=== PATIENT | male | born 1965 | race Caucasian/White ===

== ENCOUNTER 2018-02-22 21:32 | Emergency (ER) | payer MEDICAID ==
--- NOTE | 2018-02-22 22:39 | EDM.PDOC ---
ED HPI GENERAL MEDICAL PROBLEM - General Chief Complaint: Back Pain or Injury Stated Complaint: LEG AND FOOT PAIN Time Seen by Provider: 02/22/18 22:10 Source of Information: Reports: Patient History Limitations: Reports: No Limitations - History of Present Illness INITIAL COMMENTS - FREE TEXT/NARRATIVE: Ruy is recently located to the [facility] from [place], [place]. He has a PMH of psoriasis and has been taking Prednisone up to 100 mg per day po over the past 2 years. He currenly is experiencing R CVA pain that is migrating into his R lower back, hip, thigh and lower leg. Pain is aching, worse with movement, and not associated with voiding or digestive sxs. There is no injury hx. His last medical examination was about 2 years ago before GB surgery. R hip to knee Pain Score (Numeric/FACES): 5 - Related Data Allergies Allergy/AdvReac Type Severity Reaction Status Date / Time No Known Allergies Allergy Verified 02/22/18 22:05 Home Meds: Home Meds predniSONE [Prednisone] 100 mg PO DAILY 02/22/18 [History] ED ROS GENERAL - Review of Systems Review Of Systems: See Below Constitutional: Reports: No Symptoms HEENT: Reports: No Symptoms Respiratory: Reports: No Symptoms Cardiovascular: Reports: No Symptoms Endocrine: Reports: No Symptoms GI/Abdominal: Reports: No Symptoms : Reports: No Symptoms Musculoskeletal: Reports: Back Pain Skin: Reports: Rash (psoriasis) Neurological: Reports: No Symptoms Psychiatric: Reports: No Symptoms Hematologic/Lymphatic: Reports: No Symptoms Immunologic: Reports: No Symptoms ED EXAM, GENERAL - Physical Exam Exam: See Below Exam Limited By: No Limitations General Appearance: Alert, WD/WN, No Apparent Distress, Anxious Head: Normocephalic, Other (facial erythema) Neck: Normal Inspection, Supple, Non-Tender Respiratory/Chest: Lungs Clear, Normal Breath Sounds, Chest Non-Tender Cardiovascular: Regular Rate, Rhythm, No Murmur GI/Abdominal: Normal Bowel Sounds, Soft, Non-Tender, No Organomegaly, No Distention, No Abnormal Bruit, No Mass, Pelvis Stable (Male) Exam: No Hernia, Normal Inspection Rectal (Males) Exam: Normal Exam, Prostate Normal Back Exam: CVA Tenderness (R), Paraspinal Tenderness Extremities: Normal Range of Motion, No Pedal Edema Neurological: Alert, Oriented, CN II-XII Intact, Normal Gait, No Motor/Sensory Deficits Psychiatric: Normal Affect, Anxious Skin Exam: Warm, Dry, Erythema, Rash Lymphatic: No Adenopathy Course - Vital Signs Text/Narrative:: Screening labwork including CBC, CMP, and UA were baseline. 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 I suggested rest and NSAIDs, and est with PCP regarding psoriasis. Last Recorded V/S: Last Vital Signs Temp 36.7 C 02/22/18 21:58 Pulse 82 02/22/18 21:58 Resp 18 02/22/18 21:58 BP 170/95 H 02/22/18 21:58 Pulse Ox 98 02/22/18 21:58 - Orders/Labs/Meds Orders: Active Orders 24 hr Category Date Time Status UA W/MICROSCOPIC [URIN] Stat Lab 02/22/18 22:40 Ordered Labs: Laboratory Tests 02/22/18 02/22/18 02/22/18 Range/Units 22:40 22:45 22:45 WBC 12.4 H (4.5-12.0) X10-3/uL RBC 5.14 (4.30-5.75) x10(6)uL Hgb 15.1 (11.5-15.5) g/dL Hct 44.5 (30.0-51.3) % MCV 86.6 (80-96) fL MCH 29.3 (27.7-33.6) pg MCHC 33.9 (32.2-35.4) g/dL RDW 14.6 (11.5-15.5) % Plt Count 195 (125-369) X10(3)uL MPV 7.4 (7.4-10.4) fL Neut % (Auto) 93.6 H (46-82) % Lymph % (Auto) 5.1 L (13-37) % [place] % (Auto) 0.6 L (4-12) % Eos % (Auto) 0 L (1.0-5.0) % Baso % (Auto) 0 (0-2) % Neut # (Auto) 11.7 H (1.6-8.3) # Lymph # (Auto) 0.6 (0.6-5.0) # [place] # (Auto) 0.1 (0.0-1.3) # Eos # (Auto) 0.0 (0.0-0.8) # Baso # (Auto) 0.0 (0.0-0.2) # Sodium 143 (135-145) mmol/L Potassium 3.8 (3.5-5.3) mmol/L Chloride 106 (100-110) mmol/L Carbon Dioxide 30 (21-32) mmol/L BUN 21 H (7-18) mg/dL Creatinine 1.1 (0.70-1.30) mg/dL Est Cr Clr Drug Dosing 84.62 mL/min Estimated GFR (MDRD) > 60 (>60) BUN/Creatinine Ratio 19.1 (9-20) Glucose 130 H (80-116) mg/dL Calcium 8.0 L (8.6-10.2) mg/dL Total Bilirubin 0.4 (0.1-1.3) mg/dL AST 23 (5-25) IU/L ALT 43 H (12-36) U/L Alkaline Phosphatase 100 (56-112) IU/L Total Protein 6.3 (6.0-8.0) g/dL Albumin 3.3 L (3.5-5.2) g/dL Globulin 3.0 g/dL Albumin/Globulin Ratio 1.1 Urine Color Yellow (YELLOW) Urine Appearance Clear (CLEAR) Urine pH 6.0 (5.0-6.5) Ur Specific [place] 1.010 (1.010-1.025) Urine Protein Negative (NEGATIVE) mg/dL Urine Glucose (UA) Normal (NEGATIVE) mg/dL Urine Ketones Negative (NEGATIVE) mg/dL Urine Occult Blood Negative (NEGATIVE) Urine Nitrite Negative (NEGATIVE) Urine Bilirubin Negative (NEGATIVE) Urine Urobilinogen 1 H (NEGATIVE) mg/dL Ur Leukocyte Esterase Negative (NEGATIVE) Urine RBC 0-5 (0) Urine WBC 0-5 (0) Ur Squamous Epith Cells Occasional (NS,R,O) Urine Bacteria Rare H (NS) Departure - Departure Time of Disposition: 23:43 Disposition: Home, Self-Care 01 Condition: Fair Clinical Impression: Back pain Qualifiers: Back pain location: back pain in other location Chronicity: unspecified Qualified Code(s): M54.89 - Other dorsalgia - Discharge Information *PRESCRIPTION DRUG MONITORING PROGRAM REVIEWED*: Not Applicable *COPY OF PRESCRIPTION DRUG MONITORING REPORT IN PATIENT SANDY: Not Applicable Referrals: PCP,None [Primary Care Provider] - Forms: ED Department Discharge - Problem List & Annotations (1) Back pain SNOMED Code(s): 636617631 Code(s): M54.9 - DORSALGIA, UNSPECIFIED Status: Acute Current Visit: Yes Annotation/Comment:: NSAIDs, rest, and follow up with PCP. Qualifiers: Back pain location: back pain in other location Chronicity: unspecified Qualified Code(s): M54.89 - Other dorsalgia - Problem List Review Problem List Initiated/Reviewed/Updated: Yes - My Orders Last 24 Hours: My Active Orders 02/22/18 22:40 UA W/MICROSCOPIC [URIN] Stat - Assessment/Plan Last 24 Hours: My Active Orders 02/22/18 22:40 UA W/MICROSCOPIC [URIN] Stat Plan: Follow up with PCP.
== END 2018-02-22 23:47 | disposition home or self-care (01) ==
LOC: FB.ED 21:32
DX: M54.89 Other dorsalgia (principal); L40.9 Psoriasis, unspecified
CPT/HCPCS: 36415; 80053; 81001; 85025; 99283

== ENCOUNTER 2018-03-31 15:26 | Emergency (ER) | payer MEDICAID ==
--- NOTE | 2018-03-31 17:46 | EDM.PDOC ---
ED HPI GENERAL MEDICAL PROBLEM - General Chief Complaint: General Stated Complaint: EDEMA BOTH ANKLES Time Seen by Provider: 03/31/18 15:35 Source of Information: Reports: Patient, Family History Limitations: Reports: Physical Impairment - History of Present Illness INITIAL COMMENTS - FREE TEXT/NARRATIVE: 52 y.o.w.m with h/o of chronic low back pain, Psoriasis, disabled, ambulates with the wheel chair and crutches, came to the ed because of acute swelling of his lower extremities. pt noticed the swelling this am. No SOB, No C/P No H/O CHF or diabetes. Pt is on Oxycodon and Prednison for his Psoriasis and pain. He is using Marijuana and Cocain as well, occ. No trauma. Pt is not able to sleep in a bed in supine position. No N/V/D or any other acute medical issues. 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: Other (see below) (Prednison and oxycodon) bilateral leg Pain Score (Numeric/FACES): 7 - Related Data Allergies Allergy/AdvReac Type Severity Reaction Status Date / Time No Known Allergies Allergy Verified 03/31/18 15:45 Home Meds: Home Meds predniSONE [Prednisone] 50 mg PO DAILY 02/22/18 [History] Hydrocodone/Acetaminophen [Hydrocodon-Acetaminophn 10-325] 1 tab PO Q4HR [History] Past Medical History Cardiovascular History: Reports: Other (See Below) Other Cardiovascular History: states that blood pressure is always high but PCP did not prescribe him with anti hypertensive med as PCP said that blood pressure is just related to his chonic pain. Musculoskeletal History: Reports: Arthritis, Other (See Below) Other Musculoskeletal History: psoriatric arthritis Neurological History: Reports: Concussion Psychiatric History: Reports: Other (See Below) Other Psychiatric History: cocaine use in the past. Dermatologic History: Reports: Psoriasis - Infectious Disease History Infectious Disease History: Reports: Chicken Pox - Past Surgical History HEENT Surgical History: Reports: Oral Surgery Cardiovascular Surgical History: Reports: None GI Surgical History: Reports: Cholecystectomy Musculoskeletal Surgical History: Reports: None Social & Family History - Family History Family Medical History: Noncontributory - Tobacco Use Smoking Status *Q: Current Every Day Smoker Years of Tobacco use: 31 Packs/Tins Daily: 1 - Caffeine Use Caffeine Use: Reports: Coffee, Soda - Recreational Drug Use Recreational Drug Use: Yes Recreational Drug Type: Reports: Cocaine ED ROS GENERAL - Review of Systems Review Of Systems: See Below Constitutional: Reports: Weakness HEENT: Reports: No Symptoms Respiratory: Reports: No Symptoms Cardiovascular: Reports: No Symptoms Endocrine: Reports: No Symptoms GI/Abdominal: Reports: No Symptoms : Reports: No Symptoms Musculoskeletal: Reports: Muscle Pain Skin: Reports: Other (Psoriasis) Neurological: Reports: No Symptoms Psychiatric: Reports: No Symptoms Hematologic/Lymphatic: Reports: No Symptoms Immunologic: Reports: No Symptoms ED EXAM, GENERAL - Physical Exam Exam: See Below Exam Limited By: Physical Impairment General Appearance: Alert, WD/WN, Mild Distress Eye Exam: Bilateral Eye: Normal Inspection Ears: Normal External Exam Ear Exam: Bilateral Ear: Auricle Normal Nose: Normal Inspection, Normal Mucosa Throat/Mouth: Normal Inspection, Normal Lips, Normal Gums, Normal Oropharynx, Normal Voice, No Airway Compromise Head: Atraumatic, Normocephalic Neck: Normal Inspection, Supple, Non-Tender, Full Range of Motion Respiratory/Chest: No Respiratory Distress, Lungs Clear, Normal Breath Sounds, No Accessory Muscle Use, Chest Non-Tender Cardiovascular: Normal Peripheral Pulses, Regular Rate, Rhythm, No Edema, No Gallop, No JVD, No Murmur, No Rub GI/Abdominal: Normal Bowel Sounds, Soft, Non-Tender, No Organomegaly, No Distention, No Abnormal Bruit, No Mass, Pelvis Stable (Male) Exam: Deferred Rectal (Males) Exam: Deferred Back Exam: Normal Inspection, Full Range of Motion Extremities: Normal Range of Motion, Non-Tender, Normal Capillary Refill, Pedal Edema (minor 1-2+) Neurological: Alert, Oriented, CN II-XII Intact, Normal Cognition, Abnormal Gait (due to back pain chronic) Psychiatric: Normal Affect Skin Exam: Warm, Dry, Intact, Normal Color, No Rash Lymphatic: No Adenopathy Course - Vital Signs Text/Narrative:: 52 y.o.w.m with h/o of chronic low back pain, Psoriasis, disabled, ambulates with the wheel chair and crutches, came to the ed because of acute swelling of his lower extremities. pt noticed the swelling this am. No SOB, No C/P No H/O CHF or diabetes. Pt is on Oxycodon and Prednison for his Psoriasis and pain. He is using Marijuana and Cocain as well, occ. No trauma. Pt is not able to sleep in a bed in supine position. No N/V/D or any other acute medical issues. BP 175/ 89 Pulse 74 RR 18 Pulse ox 98% on RA Temp 36.8 PE: WNWD w m with lower leg swelling Imaging: US neg foir DVT ( done 04/01/2018) Labs: UDS for opioids and Cocaine HGB A1c 5.7 BNP Nl Glc 121 GFR > 60 Lactic acid nl WBC 14K reminder of WBC was neg Impression: 1) David lower leg edema: DDx DVT vs Cardiac vs lymphedema. 2) Drug screen pos for cocaine and Opioids 3) H/O low back pain, H/o Psoriasis 4) HTN, pt takes cocain Tx: Clonidin 0.1 mg po Reexam: Improved Plan: D/C with instructions Last Recorded V/S: Last Vital Signs Temp 36.9 C 03/31/18 15:35 Pulse 94 03/31/18 15:35 Resp 18 03/31/18 15:35 BP 173/96 H 03/31/18 18:01 Pulse Ox 99 03/31/18 15:35 - Orders/Labs/Meds Orders: Active Orders 24 hr Category Date Time Status DRUG SCREEN, URINE ALERE [URCHEM] Stat Lab 03/31/18 16:50 Ordered Labs: Laboratory Tests 03/31/18 03/31/18 03/31/18 Range/Units 16:35 16:35 16:35 WBC 14.0 H (4.5-12.0) X10-3/uL RBC 4.48 (4.30-5.75) x10(6)uL Hgb 14.0 (11.5-15.5) g/dL Hct 40.0 (30.0-51.3) % MCV 89.3 (80-96) fL MCH 31.2 (27.7-33.6) pg MCHC 34.9 (32.2-35.4) g/dL RDW 15.5 (11.5-15.5) % Plt Count 200 (125-369) X10(3)uL MPV 7.2 L (7.4-10.4) fL Add Manual Diff Yes Neutrophils % (Manual) 85 H (46-82) % Band Neutrophils % 2 (0-6) % Lymphocytes % (Manual) 10 L (13-37) % Monocytes % (Manual) 3 L (4-12) % Sodium 136 (135-145) mmol/L Potassium 3.9 (3.5-5.3) mmol/L Chloride 103 (100-110) mmol/L Carbon Dioxide 33 H (21-32) mmol/L BUN 25 H (7-18) mg/dL Creatinine 0.9 (0.70-1.30) mg/dL Est Cr Clr Drug Dosing 103.42 mL/min Estimated GFR (MDRD) > 60 (>60) BUN/Creatinine Ratio 27.8 H (9-20) Glucose 141 H (80-116) mg/dL Hemoglobin A1c (4.5-6.2) % Lactic Acid (0.4-2.2) mmol/L Calcium 9.0 (8.6-10.2) mg/dL Total Bilirubin (0.1-1.3) mg/dL Direct Bilirubin (0.10-0.20) mg/dL AST (5-25) IU/L ALT (12-36) U/L Alkaline Phosphatase (56-112) IU/L NT-Pro-B Natriuret Pep 118 (<=125) pg/mL Total Protein (6.0-8.0) g/dL Albumin (3.5-5.2) g/dL Urine Opiates Screen (NEGATIVE) Ur Oxycodone Screen (NEGATIVE) Ur Propoxyphene Screen (NEGATIVE) Ur Barbituates Screen (NEGATIVE) Ur Tricyclics Screen (NEGATIVE) Ur Phencyclidine Scrn (NEGATIVE) Ur Amphetamine Screen (NEGATIVE) Urine MDMA Screen (NEGATIVE) U Benzodiazepines Scrn (NEGATIVE) U Cocaine Metab Screen (NEGATIVE) U Marijuana (THC) Screen (NEGATIVE) 03/31/18 03/31/18 03/31/18 Range/Units 16:35 16:35 16:35 WBC (4.5-12.0) X10-3/uL RBC (4.30-5.75) x10(6)uL Hgb (11.5-15.5) g/dL Hct (30.0-51.3) % MCV (80-96) fL MCH (27.7-33.6) pg MCHC (32.2-35.4) g/dL RDW (11.5-15.5) % Plt Count (125-369) X10(3)uL MPV (7.4-10.4) fL Add Manual Diff Neutrophils % (Manual) (46-82) % Band Neutrophils % (0-6) % Lymphocytes % (Manual) (13-37) % Monocytes % (Manual) (4-12) % Sodium (135-145) mmol/L Potassium (3.5-5.3) mmol/L Chloride (100-110) mmol/L Carbon Dioxide (21-32) mmol/L BUN (7-18) mg/dL Creatinine (0.70-1.30) mg/dL Est Cr Clr Drug Dosing mL/min Estimated GFR (MDRD) (>60) BUN/Creatinine Ratio (9-20) Glucose (80-116) mg/dL Hemoglobin A1c 5.6 (4.5-6.2) % Lactic Acid 1.5 (0.4-2.2) mmol/L Calcium (8.6-10.2) mg/dL Total Bilirubin 0.4 (0.1-1.3) mg/dL Direct Bilirubin 0.09 L (0.10-0.20) mg/dL AST 13 D (5-25) IU/L ALT 53 H D (12-36) U/L Alkaline Phosphatase 144 H (56-112) IU/L NT-Pro-B Natriuret Pep (<=125) pg/mL Total Protein 6.2 (6.0-8.0) g/dL Albumin 3.1 L (3.5-5.2) g/dL Urine Opiates Screen (NEGATIVE) Ur Oxycodone Screen (NEGATIVE) Ur Propoxyphene Screen (NEGATIVE) Ur Barbituates Screen (NEGATIVE) Ur Tricyclics Screen (NEGATIVE) Ur Phencyclidine Scrn (NEGATIVE) Ur Amphetamine Screen (NEGATIVE) Urine MDMA Screen (NEGATIVE) U Benzodiazepines Scrn (NEGATIVE) U Cocaine Metab Screen (NEGATIVE) U Marijuana (THC) Screen (NEGATIVE) 03/31/18 Range/Units 16:50 WBC (4.5-12.0) X10-3/uL RBC (4.30-5.75) x10(6)uL Hgb (11.5-15.5) g/dL Hct (30.0-51.3) % MCV (80-96) fL MCH (27.7-33.6) pg MCHC (32.2-35.4) g/dL RDW (11.5-15.5) % Plt Count (125-369) X10(3)uL MPV (7.4-10.4) fL Add Manual Diff Neutrophils % (Manual) (46-82) % Band Neutrophils % (0-6) % Lymphocytes % (Manual) (13-37) % Monocytes % (Manual) (4-12) % Sodium (135-145) mmol/L Potassium (3.5-5.3) mmol/L Chloride (100-110) mmol/L Carbon Dioxide (21-32) mmol/L BUN (7-18) mg/dL Creatinine (0.70-1.30) mg/dL Est Cr Clr Drug Dosing mL/min Estimated GFR (MDRD) (>60) BUN/Creatinine Ratio (9-20) Glucose (80-116) mg/dL Hemoglobin A1c (4.5-6.2) % Lactic Acid (0.4-2.2) mmol/L Calcium (8.6-10.2) mg/dL Total Bilirubin (0.1-1.3) mg/dL Direct Bilirubin (0.10-0.20) mg/dL AST (5-25) IU/L ALT (12-36) U/L Alkaline Phosphatase (56-112) IU/L NT-Pro-B Natriuret Pep (<=125) pg/mL Total Protein (6.0-8.0) g/dL Albumin (3.5-5.2) g/dL Urine Opiates Screen Positive H (NEGATIVE) Ur Oxycodone Screen Negative (NEGATIVE) Ur Propoxyphene Screen Negative (NEGATIVE) Ur Barbituates Screen Negative (NEGATIVE) Ur Tricyclics Screen Negative (NEGATIVE) Ur Phencyclidine Scrn Negative (NEGATIVE) Ur Amphetamine Screen Negative (NEGATIVE) Urine MDMA Screen Negative (NEGATIVE) U Benzodiazepines Scrn Negative (NEGATIVE) U Cocaine Metab Screen Positive H (NEGATIVE) U Marijuana (THC) Screen Negative (NEGATIVE) Meds: Medications Discontinued Medications Generic Name Dose Route Start Last Admin Trade Name [place] PRN Reason Stop Dose Admin Clonidine HCl 0.1 mg 03/31/18 17:55 03/31/18 18:01 Catapres PO 03/31/18 17:56 0.1 mg ONETIME ONE Administration Departure - Departure Time of Disposition: 17:46 Disposition: Home, Self-Care 01 Condition: Good Clinical Impression: Swelling of lower leg - Discharge Information Instructions: Deep Vein Thrombosis Referrals: Maicol Pina MD [Primary Care Provider] - Forms: ED Department Discharge Additional Instructions: Please increase water intake, please elevate legs please come back for an US lower legs to R/O DVT. Please come back immediately if your symptoms get worse acutely - My Orders Last 24 Hours: My Active Orders 03/31/18 16:50 DRUG SCREEN, URINE ALERE [URCHEM] Stat - Assessment/Plan Last 24 Hours: My Active Orders 03/31/18 16:50 DRUG SCREEN, URINE ALERE [URCHEM] Stat
[2018-03-31] MEDS ORDERED: cloNIDine 0.1 MG Tab PO ONE (17:55)
== END 2018-03-31 18:05 | disposition home or self-care (01) ==
LOC: FB.ED 15:26
DX: R60.0 Localized edema (principal); I10 Essential (primary) hypertension; F17.210 Nicotine dependence, cigarettes, uncomplicated; Z79.899 Other long term (current) drug therapy
CPT/HCPCS: 36415; 80048; 80076; 80305; 83036; 83605; 83880; 85025; 99283; A9270

== ENCOUNTER 2018-04-15 13:37 | Inpatient (IN) | payer MEDICAID ==
[~2018-04-15 13:37] MED LIST: HYDROmorphone 2 MG/ML SDV IV ONE; Midazolam 1 MG/ML 2 ML SDV IV ONE; fentaNYL 100 MCG/2 ML SDV IV ONE
--- NOTE | 2018-04-15 15:50 | EDM.PDOC ---
ED HPI GENERAL MEDICAL PROBLEM - General Chief Complaint: Back Pain or Injury Stated Complaint: BACK PAIN Time Seen by Provider: 04/15/18 13:55 History Limitations: Reports: No Limitations - History of Present Illness INITIAL COMMENTS - FREE TEXT/NARRATIVE: Patient hasn't severe back pain and tenderness onset April 04. He was limited to [facility] on April 06 and had an MRI of the same day. He was discharged April 09. April 06 he has been taking prednisone 20 mg daily for 2 years. She has been seeing the chiropractor saw Her one time and he has resulted in severe back pain so went back to the chiropractor second day he could not walk. He walked around with "a broken back" for approximately a month until was seen by Dr. Pina April 04 and he had an MRI the following day April 05 and the following April 06 was hospitalized [facility]. He was discharged from [facility] April 09. April 11 after having been home for 2 days he is in such severe pain and back to [place] [facility] and transferred to the old [facility] and [place] then had surgery March 24 kyphoplasty is L2 and L4. And was dismissed home the same day to 30 p.m. he had no difficulty with further pain on March last time he took Dilaudid 2 mg was yesterday April 14. No Dilaudid was taken today. Did not have any medicines this morning. He did not have medicines that could cause nausea. He did not eat breakfast because he is so nauseated. and he has not received his today's dose. This probably nauseated not related to TMP-SMX. 30. She takes 40 mg of prednisone since he was dismissed from the hospital. However yesterday he only took 20 mg of prednisone. He will take the additional 20 mg. Today with nausea. (Possible etiologies for patient's nausea today.). He refused to take his total 40 mg prednisone yesterday and only took 20 mg. he was given 40 mg prednisone orally at 1550 today. He denies cauda equina symptoms. Per versus weakness numbness or extremities no loss of strength in his lower extremities. He has good bladder or bowel control had been dismissed on TMP SMX Wednesday. He did not take today's or TMP-SMX. 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 (see below) (OxyContin this morning.) - Related Data Allergies Allergy/AdvReac Type Severity Reaction Status Date / Time No Known Allergies Allergy Verified 04/15/18 14:05 Home Meds: Home Meds predniSONE [Prednisone] 50 mg PO DAILY 02/22/18 [History] Hydrocodone/Acetaminophen [Hydrocodon-Acetaminophn 10-325] 1 tab PO Q4HR [History] Past Medical History Cardiovascular History: Reports: Other (See Below) Other Cardiovascular History: states that blood pressure is always high but PCP did not prescribe him with anti hypertensive med as PCP said that blood pressure is just related to his chonic pain. Musculoskeletal History: Reports: Arthritis, Other (See Below) Other Musculoskeletal History: psoriatric arthritis Neurological History: Reports: Concussion Psychiatric History: Reports: Other (See Below) Other Psychiatric History: cocaine use in the past. Dermatologic History: Reports: Psoriasis - Infectious Disease History Infectious Disease History: Reports: Chicken Pox - Past Surgical History HEENT Surgical History: Reports: Oral Surgery Cardiovascular Surgical History: Reports: None GI Surgical History: Reports: Cholecystectomy Musculoskeletal Surgical History: Reports: None Social & Family History - Family History Family Medical History: Noncontributory - Caffeine Use Caffeine Use: Reports: Coffee, Soda ED ROS GENERAL - Review of Systems Review Of Systems: See Below Constitutional: Reports: No Symptoms HEENT: Reports: No Symptoms, Other (Chronic left lower lip ulcer because he's been taking prednisone for 2 years.) Respiratory: Reports: No Symptoms Cardiovascular: Reports: No Symptoms Endocrine: Reports: No Symptoms GI/Abdominal: Reports: No Symptoms : Reports: No Symptoms Musculoskeletal: Reports: Back Pain Skin: Reports: Other (Chronic lifetime psoriasis with pigmentation changes as well as extremity secondary to extensive prednisone use.) Neurological: Reports: Difficulty Walking Psychiatric: Reports: No Symptoms Hematologic/Lymphatic: Reports: No Symptoms Immunologic: Reports: No Symptoms ED EXAM,LOWER BACK PAIN/INJURY - Physical Exam Exam: See Below Text/Narrative:: Patient is in marked pain and does not want to change from a semi-forward sitting up position to supine position because of the extensive low back pain. Exam Limited By: No Limitations General Appearance: Alert, Severe Distress Eye Exam: Bilateral Eye: Abnormal Pupil (Pinpoint pupils.) Ears: Normal External Exam, Normal Canal, Hearing Grossly Normal, Normal TMs Nose: Normal Inspection, Normal Mucosa, No Blood Throat/Mouth: Normal Inspection, Normal Teeth, Normal Gums, Normal Oropharynx, Other (Left lower lip oral ulcerative chronic. Secondary to prednisone use for 2 years) Neck: Normal Inspection, Supple, Non-Tender, Full Range of Motion Respiratory/Chest: No Respiratory Distress, Lungs Clear GI/Abdominal: Normal Bowel Sounds, Tender, Other (Mild voluntary guarding) (Male) Exam: No Hernia, Normal Inspection Rectal (Males) Exam: Deferred Back Exam: Other (He has such severe back pain he does not want to rule out his back onto his side. He prefers to be 45 flexion. His pain so extensively refused to move. And groans loudly in anticipation and objection to my thinking about, discussing, any attempt to move) Neurological: Alert, Normal Mood/Affect, Normal Dorsiflexion, CN II-XII Intact, Normal Plantar Flexion DTR - Lower Extremities: 0: Knee (R), Knee (L), Ankle (R), Ankle (L) Psychiatric: Normal Affect, Normal Mood Skin Exam: Warm, Dry, Intact, Normal Color Course - Orders/Labs/Meds Orders: Active Orders 24 hr Category Date Time Status Lumbar Spine wo Cont [CT] Stat Exams 04/15/18 15:07 Ordered Meds: For his conscious sedation CAT scan studies patient received 200g fentanyl, 2 mg Versed, 2 mg Dilaudid IV without conplication and the CT of his lower back was completed without difficulty. Iraj Lauren was the nurse upscale security officer Departure - Departure Time of Disposition: 17:15 (He had nausea this AM (thought to be aproblembecause he did he did not take TMP SMX. He did not take any antibiotic this morning. He also has been given a nicotine patch in the hospital which she took off and did not use. Yesterday he did not take his full 40 mg of prednisone. Instead he said F that I want to get this over with. I'm only going to take 20 mg of prednisone." He refused to take his appropriate 40 mg prednisone. He did not take any prednisone this morning. It is possible that his nausea and vomiting secondary to not taking yesterday his complaint prednisone dose and no prednisone taken today.Adrenal crisis.. I discussed with the family with their wishes were regarding hospitalization and pain control for this weekend which includes the weekend. They answered and preferred he stay [facility] until the interventional radiology could be completed on April 22. I spoke to Dr. Pitts, interventional radiologist and interventional radiology would not be available to April 22. Meantime patient will be admitted to the hospital for pain control this . I do spoken to and he has accepted the patient for admission to [facility].. I will be writing admission orders.) Disposition: Admitted As Inpatient 67 Condition: Fair Clinical Impression: Lumbar compression fracture Qualifiers: Encounter type: subsequent encounter Lumbar vertebra fracture level: L4 Fracture type: closed Fracture healing: with routine healing Qualified Code(s): S32.040D - Wedge compression fracture of fourth lumbar vertebra, subsequent encounter for fracture with routine healing Thoracic compression fracture Qualifiers: Encounter type: initial encounter Fracture type: closed Qualified Code(s): S22.000A - Wedge compression fracture of unspecified thoracic vertebra, initial encounter for closed fracture - Discharge Information *PRESCRIPTION DRUG MONITORING PROGRAM REVIEWED*: Not Applicable *COPY OF PRESCRIPTION DRUG MONITORING REPORT IN PATIENT SANDY: Not Applicable Referrals: Maicol Pina MD [Primary Care Provider] - ED Communication - Discussed Case With (1) Discussed Case With (1): Admitting Provider Person/s Notified (1): Alen Tavarez - Discussed Case With (2) Discussed Case With (2): Radiologist (Dr Pitts, Interventional radiologist [facility]; the scheduling team called back and said they would be calling Wednesday MedSurg station at [facility] to see if arrangements could be made for interventional radiology on April 22) - My Orders Last 24 Hours: My Active Orders 04/15/18 15:07 Lumbar Spine wo Cont [CT] Stat - Assessment/Plan Last 24 Hours: My Active Orders 04/15/18 15:07 Lumbar Spine wo Cont [CT] Stat
[2018-04-15] MEDS ORDERED: HYDROmorphone 2 MG/ML SDV IVPUSH PRN (17:47)
[2018-04-15] MEDS ORDERED: Bisacodyl 5 MG Tab PO PRN (17:47)
[2018-04-15] MEDS ORDERED: Promethazine 25 MG Tab PO PRN (17:47)
[2018-04-15] MEDS: Sodium Chloride 0.9% 1,000 ML IV SCH (18:00)
[2018-04-15] MEDS ORDERED: Sulfamethoxazole/Trimethoprim 800-160 MG Tab PO SCH (18:15)
[2018-04-15] MEDS: Pantoprazole 40 MG Tab.CR PO SCH (19:26)
[2018-04-15] MEDS: oxyCODONE 5 MG Tab PO SCH ×2 (19:27→22:47)
[2018-04-15] MEDS: Acetaminophen 325 MG Tab PO SCH ×2 (19:28→22:49)
[2018-04-15] MEDS: Gabapentin 100 MG Cap PO SCH (20:43)
[2018-04-15] MEDS: Calcium Carbonate 500 MG Tab.Chew PO SCH (20:44)
[2018-04-16] MEDS: Sodium Chloride 0.9% 1,000 ML IV SCH (01:03)
[2018-04-16] MEDS: Acetaminophen 325 MG Tab PO SCH ×3 (02:30→10:11)
[2018-04-16] MEDS: oxyCODONE 5 MG Tab PO SCH ×3 (02:30→10:11)
[2018-04-16] MEDS: Pantoprazole 40 MG Tab.CR PO SCH (07:27)
[2018-04-16] MEDS: Calcium Carbonate 500 MG Tab.Chew PO SCH (08:56)
[2018-04-16] MEDS: Gabapentin 100 MG Cap PO SCH (08:57)
[2018-04-16] MEDS ORDERED: Celecoxib 200 MG Cap PO SCH (09:00)
[2018-04-16] MEDS ORDERED: Cholecalciferol (Vitamin D3) 1,000 Unit Tab PO SCH (09:00)
[2018-04-16] MEDS ORDERED: predniSONE 20 MG Tab PO SCH (09:00)
[2018-04-16] MEDS ORDERED: Fluconazole 100 MG Tab PO SCH (09:00)
--- NOTE | 2018-04-16 11:21 | HP ---
ADMISSION DATE: 04/15/2018 CHIEF COMPLAINT: Admission for back pain. HISTORY OF PRESENT ILLNESS: Ruy is a 52-year-old man from [place], [place], with a history of chronic severe psoriasis. He has been on high- dose prednisone, purchased in [place] for the past few years, sometimes up to 100- 200 mg per day. Ruy states that for the past few months, he has been having low back pain including numbness in the right foot. For this reason, he went to the chiropractor, and he said after his chiropractor visit in March, he developed acute severe pain in the back. He was sent to [facility] in [place] and was found to have 2 compression fractures in the lumbar spine. He was treated with kyphoplasty on 04/11/2018 and said the next day, he felt very well. Yesterday, he was moving, and he felt severe, recurrent pain in his low back. He did not injure himself, lift, etc. He came into the emergency room because of severe, unrelenting pain and was admitted now overnight for back pain. PAST MEDICAL HISTORY: Includes the long-standing psoriasis and the excessively high steroid dose. He has also been on high doses of narcotic and has a history of alcohol and cocaine intake. Past medical history also positive for cholecystectomy but negative for other surgeries or injuries, and he denies other health problems. MEDICATIONS: Upon discharge from [facility] include: 1. Dilaudid 2 mg every 4 hours p.r.n. pain. 2. Senokot-S 2 tabs b.i.d. 3. Tylenol p.r.n. 4. Calcium 500 mg t.i.d. 5. Diflucan 200 mg per day for 12 days. 6. Gabapentin 100 mg t.i.d. 7. Zestoretic 1 tab daily. 8. Omeprazole 20 mg daily. 9. Prednisone 40 mg daily with a planned upcoming taper. 10.Bactrim DS 1 tab Wednesday, Wednesday, Wednesday. 11.Vitamin D3, 2000 units per day. 12.He was asked to discontinue his Celebrex and his oxycodone. ALLERGIES: None. HABITS: He smokes a pack per day. He quit alcohol when he started having severe back pains in the last couple of months, and he denies any current drug use, but has at least a 6-pack of Mountain Dew per day. FAMILY AND SOCIAL HISTORY: The patient states he has not been able to work since his back pain. 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 He is accompanied by and daughter today. REVIEW OF SYSTEMS: Negative for headaches, high fever, or chills. He states he did have nausea and threw up yesterday, he suspects because he only took 20 mg of prednisone. No current nausea. No chest pain, palpitations, dyspnea, abdominal pain, diarrhea, constipation, hematochezia, melena, hematuria, joint inflammation or swelling. He has chronic psoriasis skin rash that appears quite suppressed. PHYSICAL EXAMINATION: GENERAL: He is alert and currently comfortable while lying in bed. VITAL SIGNS: Blood pressure 119/77, pulse 80 and regular, respirations 18, temperature 98.2. SKIN: Shows old changes of psoriasis over lower extremities. There is a healed puncture wound over his mid lumbar spine with no sign of inflammation or infection. He has extensive upper body tattoos. HEENT: Shows mouth to be dry. LUNGS: Clear. HEART: Regular. No murmur or gallop. ABDOMEN: Normal bowel sounds. Soft. He does relate slight tenderness in the right lower quadrant to palpation but no guarding, rebound, masses, or organomegaly. EXTREMITIES: Warm and well perfused. Good pulses in the feet. No edema. NEUROLOGIC: He is able to lift both legs up off the bed individually. He is able to roll onto his right side. Ankle jerk reflexes are 3+ at the left ankle jerk and absent at the right ankle jerk but strength, dorsi and plantar flexion of both feet are intact. ASSESSMENT: 1. Severe back pain post 3rd compression fracture after 2 kyphoplasties. 2. 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 3. Heavy medication intake. 4. Heavy narcotic use. PLAN: We will convert him from the IV hydromorphone to just oral oxycodone. Continue his pantoprazole and prednisone 40 mg daily and other medications as previously prescribed. There is apparently an appointment in place for him to have a 3rd kyphoplasty at [facility] in [place] on April 19. Likely, we will be able to get him up and moving around on oral medications so he can go home prior to that. /[id number] JONAH
--- NOTE | 2018-04-16 13:02 | DISCH ---
DISCHARGE DATE: 04/16/2018 PRIMARY FINAL DIAGNOSIS: Severe intractable low back pain secondary to compression fracture. 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 OPERATIONS: None. COMPLICATIONS: The patient was treated with IV hydromorphone and his pain got under control. By the next morning, he was able to get out of bed, get to the bathroom, wash up, and was anxious to go home. SUMMARY: Mr. Pardo is a 52-year-old man with severe steroid related osteoporosis due to taking high doses of oral steroid for psoriasis and psoriatic arthritis. He had kyphoplasty of two lumbar compression fractures, with good immediate improvement, but then yesterday on the day of admission, he developed sudden onset of lumbar back pain that was intractable. He came to the ER and was admitted overnight. CT exam revealed a possible additional L4 compression in addition with the visible kyphoplasty cement at L3 and L5. He was switched from IV hydromorphone to oral oxycodone and tolerated this satisfactorily, so he is ready for discharge. He was sent home in stable condition. There were arrangements pending for him to have evaluation for additional kyphoplasty at [facility] for April 19. MEDICATIONS ON DISCHARGE: 1. Dilaudid 2 mg every 4 hours p.r.n. pain. He was given a prescription for this up in [place] prior to his discharge. 2. Bactrim 1 tab Wednesday, Wednesday, and Wednesday. 3. Dulcolax tablets 5 mg daily p.r.n. 4. Tylenol p.r.n. 5. Prednisone 40 mg daily with a planned taper as previously discussed with him in [place]. 6. Omeprazole 20 mg daily. 7. Gabapentin 100 mg t.i.d. 8. Diflucan 200 mg daily. 9. Vitamin D 2000 units daily. 10.Calcium 500 mg t.i.d. FOLLOWUP: He is to have follow up as scheduled for the lumbar spine evaluation at [facility]. He will have routine followup with Dr. Pina in [place] on a p.r.n. basis in [place]. /[id number] RO/ALISHAL
== END 2018-04-16 12:30 | disposition home or self-care (01) | DRG 544 ==
LOC: FB.ED 13:37 → FB.MS 17:43
PROVIDERS: ADMIT Family Medicine; ATTEND Family Medicine
DX: M80.88XA Other osteoporosis with current pathological fracture, vertebra(e), initial encounter for fracture (principal); T38.0X5A Adverse effect of glucocorticoids and synthetic analogues, initial encounter; M51.17 Intervertebral disc disorders with radiculopathy, lumbosacral region; L40.9 Psoriasis, unspecified; L40.50 Arthropathic psoriasis, unspecified; Z98.890 Other specified postprocedural states; G89.29 Other chronic pain; Z79.52 Long term (current) use of systemic steroids; F17.210 Nicotine dependence, cigarettes, uncomplicated; K13.0 Diseases of lips; F14.11 Cocaine abuse, in remission; Z72.89 Other problems related to lifestyle; M54.9 Dorsalgia, unspecified
CPT/HCPCS: 72131; 96361; 96374; 96375; 99284; A9270-GY; J1170; J2250; J3010; J7030

== ENCOUNTER 2018-04-27 14:14 | Emergency (ER) | payer MEDICAID ==
--- NOTE | 2018-04-27 15:15 | EDM.PDOC ---
ED HPI GENERAL MEDICAL PROBLEM - General Chief Complaint: Back Pain or Injury Stated Complaint: BACK INJURY Time Seen by Provider: 04/27/18 14:45 Source of Information: Reports: Patient, Family, Old Records History Limitations: Reports: No Limitations - History of Present Illness INITIAL COMMENTS - FREE TEXT/NARRATIVE: Drew returns to [facility] ED with sxs of breakthrough pain from his back, worse over the past 12 hrs. He has a PMH of osteoporosis, compression fx at T12, L2 and L4, status post kyphoplasty at [facility]. He is awaiting further tests including a DEXA scan tomorrow and eventual MRI through [facility] for ongoing managment. He currently has been taking Dilaudid 2 mg q 4hrs, and this has not held him today. There are no new neurologic sxs affecting LEs, bowel or bladder function. Middle Back Pain Score (Numeric/FACES): 10 - Related Data Allergies Allergy/AdvReac Type Severity Reaction Status Date / Time No Known Allergies Allergy Verified 04/27/18 14:20 Home Meds: Home Meds Calcium Carbonate 500 mg PO TID 04/15/18 [History] Cholecalciferol (Vitamin D3) [Vitamin D3] 1 tab PO DAILY 04/15/18 [History] Fluconazole [Diflucan] 200 mg PO DAILY 04/15/18 [History] Gabapentin [Neurontin] 100 mg PO TID 04/15/18 [History] Omeprazole 20 mg PO DAILY 04/15/18 [History] predniSONE 40 mg PO DAILY 04/15/18 [History] Acetaminophen [Tylenol] 650 mg PO Q4H tablet 04/16/18 [Rx] Bisacodyl [Dulcolax] 5 mg PO DAILY PRN tablet 04/16/18 [Rx] HYDROmorphone [Dilaudid] 2 mg PO Q4H PRN #1 tab 04/16/18 [Rx] Sulfamethoxazole/Trimethoprim [Septra DS] 1 tab PO MoWeFr@0900 tablet 04/16/18 [Rx] Past Medical History Cardiovascular History: Reports: Other (See Below) Other Cardiovascular History: states that blood pressure is always high but PCP did not prescribe him with anti hypertensive med as PCP said that blood pressure is just related to his chonic pain. Musculoskeletal History: Reports: Arthritis, Other (See Below) Other Musculoskeletal History: psoriatric arthritis Neurological History: Reports: Concussion, Other (See Below) Psychiatric History: Reports: Other (See Below) Other Psychiatric History: cocaine use in the past. Dermatologic History: Reports: Psoriasis - Infectious Disease History Infectious Disease History: Reports: Chicken Pox - Past Surgical History HEENT Surgical History: Reports: Oral Surgery Cardiovascular Surgical History: Reports: None GI Surgical History: Reports: Cholecystectomy Neurological Surgical History: Reports: Vertebroplasty Other Neurological Surgeries/Procedures: Percutaneous Vertebroplasty 04/08/18 Musculoskeletal Surgical History: Reports: Other (See Below) Other Musculoskeletal Surgeries/Procedures:: CEMENT INJECTED INTO L2 AND L4 Social & Family History - Family History Family Medical History: Noncontributory - Tobacco Use Smoking Status *Q: Current Every Day Smoker Years of Tobacco use: 30 Packs/Tins Daily: 1 - Caffeine Use Caffeine Use: Reports: Soda, Tea Other Caffeine Use: 4-5 bottles - Recreational Drug Use Drug Use in Last 12 Months: Yes Recreational Drug Type: Reports: Cocaine ED ROS GENERAL - Review of Systems Review Of Systems: ROS reveals no pertinent complaints other than HPI. ED EXAM,LOWER BACK PAIN/INJURY - Physical Exam Exam: See Below Exam Limited By: No Limitations General Appearance: Alert, WD/WN, Moderate Distress Head: Normocephalic Neck: Normal Inspection, Supple, Non-Tender Respiratory/Chest: Lungs Clear Cardiovascular: Regular Rate, Rhythm, No Murmur GI/Abdominal: Normal Bowel Sounds, Soft, Non-Tender, No Organomegaly, No Distention (Male) Exam: Deferred Rectal (Males) Exam: Deferred Back Exam: Decreased Range of Motion, Vertebral Tenderness Extremities: Normal Inspection, Non-Tender, No Pedal Edema Neurological: Alert, Normal Mood/Affect, Normal Dorsiflexion, CN II-XII Intact, Difficulty Walking Psychiatric: Normal Affect, Anxious Skin Exam: Warm, Dry, Intact, Normal Color Lymphatic: No Adenopathy Course - Vital Signs Text/Narrative:: No meds were administered during ED visit. Last Recorded V/S: Last Vital Signs Temp 36.9 C 04/27/18 14:23 Pulse 100 04/27/18 14:23 Resp 18 04/27/18 14:23 BP 108/63 04/27/18 14:23 Pulse Ox 99 04/27/18 14:23 Departure - Departure Time of Disposition: 15:05 Disposition: Home, Self-Care 01 Condition: Fair Clinical Impression: Back pain Qualifiers: Back pain location: back pain in other location Chronicity: unspecified Qualified Code(s): M54.89 - Other dorsalgia Lumbar compression fracture Qualifiers: Encounter type: subsequent encounter Lumbar vertebra fracture level: L4 Fracture type: closed Fracture healing: with routine healing Qualified Code(s): S32.040D - Wedge compression fracture of fourth lumbar vertebra, subsequent encounter for fracture with routine healing Thoracic compression fracture Qualifiers: Encounter type: initial encounter Fracture type: closed Qualified Code(s): S22.000A - Wedge compression fracture of unspecified thoracic vertebra, initial encounter for closed fracture - Discharge Information *PRESCRIPTION DRUG MONITORING PROGRAM REVIEWED*: Not Applicable *COPY OF PRESCRIPTION DRUG MONITORING REPORT IN PATIENT SANDY: Not Applicable Referrals: Maicol Pina MD [Primary Care Provider] - - Problem List & Annotations (1) Back pain SNOMED Code(s): 248274632 Code(s): M54.9 - DORSALGIA, UNSPECIFIED Status: Acute Current Visit: Yes Annotation/Comment:: NSAIDs, rest, and follow up with PCP. I suggested increasing Dilaudid to 4 mg q 4 hrs until clinically stable, then reduce dosage to Dilaudid 3 mg q 4hrs as directed. Keep appt for DEXA scan tomorrow. Qualifiers: Back pain location: back pain in other location Chronicity: unspecified Qualified Code(s): M54.89 - Other dorsalgia - Problem List Review Problem List Initiated/Reviewed/Updated: Yes - Assessment/Plan Plan: Follow up at [facility] for further managment.
== END 2018-04-27 15:15 | disposition home or self-care (01) ==
LOC: FB.ED 14:14
DX: S22.000A Wedge compression fracture of unspecified thoracic vertebra, initial encounter for closed fracture (principal); S32.040D Wedge compression fracture of fourth lumbar vertebra, subsequent encounter for fracture with routine healing; Z79.899 Other long term (current) drug therapy; F17.210 Nicotine dependence, cigarettes, uncomplicated; X58.XXXA Exposure to other specified factors, initial encounter
CPT/HCPCS: 99283

== ENCOUNTER 2018-04-29 14:31 | Inpatient (IN) | payer MEDICAID ==
[2018-04-29] MEDS ORDERED: Sodium Chloride 0.9% 10 ML Syringe FLUSH PRN (14:45)
[2018-04-29] MEDS ORDERED: Ondansetron 4 MG/2 ML SDV IVPUSH ONE ×2 (14:45→16:48)
[2018-04-29] MEDS ORDERED: Sodium Chloride 0.9% 1,000 ML IV ONE ×2 (14:45→16:11)
[2018-04-29] MEDS ORDERED: Pantoprazole 40 MG Vial IVPUSH ONE (14:47)
[2018-04-29] MEDS ORDERED: HYDROmorphone 2 MG/ML SDV IVPUSH ONE (14:48)
--- NOTE | 2018-04-29 14:52 | EDM.PDOC ---
ED HPI GENERAL MEDICAL PROBLEM - General Chief Complaint: Abdominal Pain Stated Complaint: N/V/D Time Seen by Provider: 04/29/18 14:48 Source of Information: Reports: Patient History Limitations: Reports: No Limitations - History of Present Illness INITIAL COMMENTS - FREE TEXT/NARRATIVE: Presents with N/V/D and generalized abdominal pain since yesterday. Has a h/o of chronic pain, unable to keep medications down. Has thoracic and lumbar compression fractures due to chronic prednisone use (to treat psoriatic arthritis). Duration: Day(s): (2) Location: Reports: Abdomen Quality: Reports: Dull Severity: Moderate - Related Data Allergies Allergy/AdvReac Type Severity Reaction Status Date / Time No Known Allergies Allergy Verified 04/27/18 14:20 Home Meds: Home Meds Calcium Carbonate 500 mg PO TID 04/15/18 [History] Cholecalciferol (Vitamin D3) [Vitamin D3] 1 tab PO DAILY 04/15/18 [History] Fluconazole [Diflucan] 200 mg PO DAILY 04/15/18 [History] Gabapentin [Neurontin] 100 mg PO TID 04/15/18 [History] Omeprazole 20 mg PO DAILY 04/15/18 [History] predniSONE 40 mg PO DAILY 04/15/18 [History] Acetaminophen [Tylenol] 650 mg PO Q4H tablet 04/16/18 [Rx] Bisacodyl [Dulcolax] 5 mg PO DAILY PRN tablet 04/16/18 [Rx] HYDROmorphone [Dilaudid] 2 mg PO Q4H PRN #1 tab 04/16/18 [Rx] Sulfamethoxazole/Trimethoprim [Septra DS] 1 tab PO MoWeFr@0900 tablet 04/16/18 [Rx] Past Medical History Cardiovascular History: Reports: Other (See Below) Other Cardiovascular History: states that blood pressure is always high but PCP did not prescribe him with anti hypertensive med as PCP said that blood pressure is just related to his chonic pain. Musculoskeletal History: Reports: Arthritis, Other (See Below) (Thoracic and Lumbar compression fractures) Other Musculoskeletal History: psoriatric arthritis Neurological History: Reports: Concussion, Other (See Below) Psychiatric History: Reports: Other (See Below) Other Psychiatric History: cocaine use in the past. Dermatologic History: Reports: Psoriasis - Infectious Disease History Infectious Disease History: Reports: Chicken Pox - Past Surgical History HEENT Surgical History: Reports: Oral Surgery Cardiovascular Surgical History: Reports: None GI Surgical History: Reports: Cholecystectomy. Denies: Appendectomy Neurological Surgical History: Reports: Vertebroplasty Other Neurological Surgeries/Procedures: Percutaneous Vertebroplasty 04/08/18 Musculoskeletal Surgical History: Reports: Other (See Below) Other Musculoskeletal Surgeries/Procedures:: CEMENT INJECTED INTO L2 AND L4 Social & Family History - Family History Family Medical History: Noncontributory - Tobacco Use Smoking Status *Q: Current Every Day Smoker Tobacco Use Within Last Twelve Months: Cigarettes - Caffeine Use Caffeine Use: Reports: Soda, Tea Other Caffeine Use: 4-5 bottles - Alcohol Use Alcohol Use History: No ED ROS GENERAL - Review of Systems Review Of Systems: See Below Constitutional: Reports: No Symptoms HEENT: Reports: No Symptoms Respiratory: Reports: No Symptoms Cardiovascular: Reports: No Symptoms Endocrine: Reports: No Symptoms GI/Abdominal: Reports: Abdominal Pain, Diarrhea, Nausea, Vomiting. Denies: Hematemesis, Hematochezia, Melena : Reports: No Symptoms Musculoskeletal: Reports: Back Pain (chronic) Skin: Reports: No Symptoms Neurological: Reports: No Symptoms Psychiatric: Reports: No Symptoms Hematologic/Lymphatic: Reports: No Symptoms Immunologic: Reports: No Symptoms ED EXAM, GI/ABD - Physical Exam Exam: See Below Exam Limited By: No Limitations General Appearance: Alert, WD/WN, No Apparent Distress Ears: Normal External Exam Nose: Normal Inspection Throat/Mouth: No Airway Compromise Head: Atraumatic, Normocephalic Neck: Full Range of Motion Respiratory/Chest: No Respiratory Distress, Lungs Clear, Normal Breath Sounds Cardiovascular: Regular Rate, Rhythm, No Murmur, No Rub GI/Abdominal Exam: Soft, No Distention, Tender (moderate generalized) Rectal (Males) Exam: Deferred Neurological: Alert, Oriented, Normal Cognition Psychiatric: Normal Affect, Normal Mood Skin Exam: Warm, Dry, Intact Course - Orders/Labs/Meds Orders: Active Orders 24 hr Category Date Time Status Abdomen Pelvis w Cont [CT] Stat Exams 04/29/18 15:39 Taken CULTURE BLOOD [BC] Urgent Lab 04/29/18 15:58 Received CULTURE BLOOD [BC] Urgent Lab 04/29/18 16:30 Received STOOL CULTURE Stat Lab 04/29/18 15:38 Ordered UA W/MICROSCOPIC [URIN] Stat Lab 04/29/18 14:46 Ordered Promethazine [Phenergan] Med 04/29/18 17:45 Once 25 mg IM ONETIME ONE Sodium Chloride 0.9% [Saline Flush] Med 04/29/18 14:45 Active 10 ml FLUSH ASDIRECTED PRN Blood Culture x2 Reflex Set [OM.PC] Urgent Oth 04/29/18 15:38 Ordered Saline Lock Insert [OM.PC] Routine Oth 04/29/18 14:45 Ordered Medication Orders Sodium Chloride (Saline Flush) 10 ml FLUSH ASDIRECTED PRN PRN Reason: Keep Vein Open Labs: Laboratory Tests 04/29/18 04/29/18 04/29/18 Range/Units 14:55 14:55 15:58 WBC 26.2 H (4.5-12.0) X10-3/uL RBC 5.05 (4.30-5.75) x10(6)uL Hgb 15.2 (11.5-15.5) g/dL Hct 44.0 (30.0-51.3) % MCV 87.0 (80-96) fL MCH 30.0 (27.7-33.6) pg MCHC 34.5 (32.2-35.4) g/dL RDW 15.2 (11.5-15.5) % Plt Count 419 H (125-369) X10(3)uL MPV 6.4 L (7.4-10.4) fL Add Manual Diff Yes Neutrophils % (Manual) 82 (46-82) % Band Neutrophils % 8 H (0-6) % Lymphocytes % (Manual) 7 L (13-37) % Monocytes % (Manual) 3 L (4-12) % Sodium 129 L (135-145) mmol/L Potassium 4.5 (3.5-5.3) mmol/L Chloride 95 L D (100-110) mmol/L Carbon Dioxide 23 (21-32) mmol/L BUN 34 H (7-18) mg/dL Creatinine 1.3 (0.70-1.30) mg/dL Est Cr Clr Drug Dosing TNP Estimated GFR (MDRD) 58 L (>60) BUN/Creatinine Ratio 26.2 H (9-20) Glucose 122 H (80-116) mg/dL Lactic Acid 1.4 (0.4-2.2) mmol/L Calcium 10.2 (8.6-10.2) mg/dL Total Bilirubin 0.6 (0.1-1.3) mg/dL AST 17 D (5-25) IU/L ALT 49 H (12-36) U/L Alkaline Phosphatase 170 H (56-112) IU/L Total Protein 7.8 (6.0-8.0) g/dL Albumin 3.8 (3.5-5.2) g/dL Globulin 4.0 g/dL Albumin/Globulin Ratio 1.0 Amylase 316 H (25-115) U/L Meds: Medications Generic Name Dose Route Start Last Admin Trade Name Freq PRN Reason Stop Dose Admin Sodium Chloride 10 ml 04/29/18 14:45 Saline Flush FLUSH ASDIRECTED PRN Keep Vein Open Discontinued Medications Generic Name Dose Route Start Last Admin Trade Name Freq PRN Reason Stop Dose Admin Hydromorphone HCl 1 mg 04/29/18 14:48 04/29/18 15:25 Dilaudid IVPUSH 04/29/18 14:49 1 mg ONETIME ONE Administration Sodium Chloride 1,000 mls @ 999 mls/hr 04/29/18 14:45 04/29/18 15:15 Normal Saline IV 04/29/18 15:45 999 mls/hr .BOLUS ONE Administration Sodium Chloride 1,000 mls @ 999 mls/hr 04/29/18 16:11 04/29/18 16:25 Normal Saline IV 04/29/18 17:11 999 mls/hr .BOLUS ONE Administration Iopamidol 100 ml 04/29/18 15:51 04/29/18 16:12 Isovue-370 (76%) IV 04/29/18 15:52 100 ml . DIRECTED ONE Administration Ondansetron HCl 4 mg 04/29/18 14:45 04/29/18 15:15 Zofran IVPUSH 04/29/18 14:46 4 mg ONETIME ONE Administration Ondansetron HCl 4 mg 04/29/18 16:48 04/29/18 16:55 Zofran IVPUSH 04/29/18 16:49 4 mg ONETIME ONE Administration Pantoprazole Sodium 40 mg 04/29/18 14:47 04/29/18 15:28 Protonix Iv IVPUSH 04/29/18 14:48 40 mg ONETIME ONE Administration - Radiology Interpretation Free Text/Narrative:: CT Abd/Pelvis w/ IV contrast: mild uncomplicated acute diverticulitis, left lower lobe consolidation, progressed compression deformity of L3. - Re-Assessments/Exams Free Text/Narrative Re-Assessment/Exam: 04/29/18 17:48 Symptoms improved however nausea has returned. Departure - Departure Time of Disposition: 17:48 Disposition: Admitted As Inpatient 67 Condition: Fair Clinical Impression: Diverticulitis Pneumonia Qualifiers: Pneumonia type: due to unspecified organism Laterality: left Lung location: lower lobe of lung Qualified Code(s): J18.1 - Lobar pneumonia, unspecified organism - Discharge Information *PRESCRIPTION DRUG MONITORING PROGRAM REVIEWED*: No *COPY OF PRESCRIPTION DRUG MONITORING REPORT IN PATIENT SANDY: Not Applicable Referrals: Maicol Pina MD [Primary Care Provider] - Forms: ED Department Discharge - My Orders Last 24 Hours: My Active Orders 04/29/18 14:45 Sodium Chloride 0.9% [Saline Flush] 10 ml FLUSH ASDIRECTED PRN Saline Lock Insert [OM.PC] Routine 04/29/18 14:46 UA W/MICROSCOPIC [URIN] Stat 04/29/18 15:38 STOOL CULTURE Stat Blood Culture x2 Reflex Set [OM.PC] Urgent 04/29/18 15:39 Abdomen Pelvis w Cont [CT] Stat 04/29/18 15:58 CULTURE BLOOD [BC] Urgent 04/29/18 16:30 CULTURE BLOOD [BC] Urgent 04/29/18 17:45 Promethazine [Phenergan] 25 mg IM ONETIME ONE - Assessment/Plan Last 24 Hours: My Active Orders 04/29/18 14:45 Sodium Chloride 0.9% [Saline Flush] 10 ml FLUSH ASDIRECTED PRN Saline Lock Insert [OM.PC] Routine 04/29/18 14:46 UA W/MICROSCOPIC [URIN] Stat 04/29/18 15:38 STOOL CULTURE Stat Blood Culture x2 Reflex Set [OM.PC] Urgent 04/29/18 15:39 Abdomen Pelvis w Cont [CT] Stat 04/29/18 15:58 CULTURE BLOOD [BC] Urgent 04/29/18 16:30 CULTURE BLOOD [BC] Urgent 04/29/18 17:45 Promethazine [Phenergan] 25 mg IM ONETIME ONE
[2018-04-29] MEDS ORDERED: Iopamidol 755 Mg/ML 100 ML Bottle IV ONE (15:51)
[2018-04-29] MEDS ORDERED: Promethazine 25 MG/ML SDV IM ONE (17:45)
[2018-04-29] MEDS: Sodium Chloride 0.9% 1,000 ML IV SCH (18:50)
[2018-04-29] MEDS: Levofloxacin/Dextrose 5%-Water 750 MG in Premix Bag 1 BAG IV SCH (18:55)
[2018-04-29] MEDS: HYDROmorphone 2 MG/ML SDV IVPUSH PRN (19:12)
[2018-04-29] MEDS: Promethazine 25 MG/ML SDV IM PRN ×2 (19:13→23:39)
[2018-04-29] MEDS: Gabapentin 100 MG Cap PO SCH ×2 (20:40→21:32)
[2018-04-29] MEDS: metroNIDAZOLE/Normal Saline 500 MG in Premix Bag 1 BAG IV SCH (20:41)
[2018-04-30] MEDS: HYDROmorphone 2 MG/ML SDV IVPUSH PRN ×5 (01:38→22:40)
[2018-04-30] MEDS: Ondansetron 4 MG/2 ML SDV IVPUSH PRN ×2 (01:48→07:52)
[2018-04-30] MEDS: metroNIDAZOLE/Normal Saline 500 MG in Premix Bag 1 BAG IV SCH ×3 (03:31→20:26)
[2018-04-30] MEDS: Sodium Chloride 0.9% 1,000 ML IV SCH ×3 (04:54→22:44)
[2018-04-30] MEDS: predniSONE 5 MG Tab PO SCH (09:26)
[2018-04-30] MEDS: Gabapentin 100 MG Cap PO SCH ×3 (09:26→20:54)
[2018-04-30] MEDS: predniSONE 10 MG Tab PO SCH (09:26)
[2018-04-30] MEDS: Fluconazole 100 MG Tab PO SCH (09:27)
[2018-04-30] MEDS ORDERED: Pantoprazole 40 MG Vial IVPUSH SCH (15:00)
[2018-04-30] MEDS: Levofloxacin/Dextrose 5%-Water 750 MG in Premix Bag 1 BAG IV SCH (18:22)
[2018-05-01] MEDS: metroNIDAZOLE/Normal Saline 500 MG in Premix Bag 1 BAG IV SCH (04:09)
[2018-05-01] MEDS: HYDROmorphone 2 MG/ML SDV IVPUSH PRN ×2 (04:30→08:30)
[2018-05-01] MEDS: Sodium Chloride 0.9% 1,000 ML IV SCH (06:21)
[2018-05-01] MEDS: Fluconazole 100 MG Tab PO SCH (08:32)
[2018-05-01] MEDS: predniSONE 10 MG Tab PO SCH (08:32)
[2018-05-01] MEDS: Gabapentin 100 MG Cap PO SCH (08:32)
[2018-05-01] MEDS: predniSONE 5 MG Tab PO SCH (08:33)
[2018-05-01] MEDS ORDERED: metroNIDAZOLE 500 MG Tab PO SCH (11:00)
--- NOTE | 2018-05-02 07:21 | DISCH ---
DISCHARGE DATE: 05/01/2018 DIAGNOSIS: Acute left lower quadrant pain, diverticulitis. HISTORY OF PRESENT ILLNESS: Ruy Pardo is a 52-year-old, male, [place] resident, who was admitted with severe abdominal pain 24 hours prior to admission. He has history of chronic pain issue with complicated thoracic and lumbar spine fractures. The pain was left lower quadrant. Low-grade fever, chills, sweats and nausea. On scale of 1-10, 9/10. No colonoscopy to date. On admission, a CT scan revealed acute diverticulitis without abscess. LABORATORY STUDIES: Reveal white count 26,200, repeat 20,300, stable hemoglobin. Neutrophilia, mild hyponatremia, but good clinical response otherwise. He was placed on IV fluids, analgesics as appropriate. He was given levofloxacin and metronidazole IV. Overnight, had made good improvement. On the morning of 05/01, "anxious to go home." The pain is gone from 9-10 to 1. No episodes of vomiting for 24 hours, fever have been absent. OBJECTIVE: VITAL SIGNS: 36.5, 79, 112/78, 16, and 96. GENERAL: On exam appears comfortable. NECK: Benign. Thyroid small. CHEST: Clear in all lung hawkins. No adventitious sounds. HEART: On auscultation, no ectopy or murmur. ABDOMEN: Pretty benign. No localizing tenderness or rebound. Good bowel sounds in lower quadrants. ASSESSMENT: Acute diverticulitis. PLAN: Comfortable to go home. Good home environment and support services. We will discharge home. Analgesics available as provided in [place]. We will discharge home on Bactrim DS one p.o. b.i.d., 10 days duration, metronidazole 500 mg one p.o. t.i.d. 10 days' duration. Complementary care and well being. Fluids and hydration. Followup appointment with Dr. Pina, two weeks time. /[id number] [address]IE[address]
--- NOTE | 2018-05-02 07:21 | HP ---
ADMISSION DATE: 04/29/2018 CHIEF COMPLAINT: Complicated abdominal pain, nausea, vomiting. Suspect fever. HISTORY OF PRESENT ILLNESS: Ruy Pardo is a 52-year-old, male who was seen at [facility] on the evening of 04/29/2018. He presented with complicated abdominal pain, nausea, anorexia, low- grade fever, episodes of vomiting. Clinical observation suspicious for diverticulitis. CT abdomen performed, report not available. By myself, my observation revealed no obvious diverticular abscess. He was admitted for treatment and intervention. Presently on IV Levaquin and metronidazole. ALLERGIES: No medication, environmental, or latex allergies. PAST MEDICAL HISTORY: Significant for previous laparoscopic cholecystectomy. History of complicated psoriatic arthritis, compression fractures with intervention, osteoporosis and overuse of steroids. SOCIAL HISTORY: Resident of [place], moved here from [facility] [place]. 47, good health. Three children, all girls, 21, 25, and 27; 5 grandsons; 1/2 pack per day smoker, attempting to quit. No alcohol consumption. No illicit drug use. FAMILY HISTORY: Dad at 59 of dementia. Mom 65, doing well. One brother, no sisters. No early family history of heart disease, diabetes mellitus, or inheritable cancers. REVIEW OF SYSTEMS: CONSTITUTIONAL: Feeling better this morning at 0915. EYES: Sees well. EARS: Hears well. OROPHARYNX: Intact. DENTITION: No loose teeth. CHEST: Chronic cough. CARDIOVASCULAR: Denies chest pain. GASTROINTESTINAL: Regular, predictable stools. GENITOURINARY: Good voiding pattern. SKIN: No open sores or lesions. ENDOCRINE: No excessive thirst OR urination. ALLERGIC: No chronic cough. PSYCHIATRIC: Mood stable. MUSCULOSKELETAL: Generalized joint complaints. LABORATORY STUDIES: White count 26,200, repeat 20,300; hemoglobin 12.7; neutrophilia. Mildly decreased sodium 130, potassium 4.0, 99 chloride, GFR 60. Urinalysis unremarkable. PHYSICAL EXAMINATION: GENERAL: Appears comfortable. HEENT: Funduscopic benign. Conjunctivae clear. Bright tympanic membranes. Clear nasal discharge. Mouth and oropharynx clear. Fair dentition. NECK: Benign. Thyroid small. No adenopathy. No carotid bruits. CHEST: Clear in all lung hawkins. No adventitious sounds. HEART: Regular without ectopy or murmur. BREASTS: Normal male breasts. ABDOMEN: Right upper quadrant cholecystectomy scar, well healed, remote. Acutely tender left lower quadrant suprapubically. Good bowel sounds. EXTREMITIES: Well perfused. NEUROMUSCULAR: Intact. Reflexes symmetric. Achy back pain on palpation. SKIN: Multiple tattoos. ASSESSMENT: 1. Acute abdominal pain, suspect diverticulitis. 2. Secondary diagnosis as above. PLAN: Admission indicated. IV fluid hydration. Bowel rest, to dose antibiotics Levaquin and metronidazole. Complementary care and well being, pain control with Dilaudid. Oral steroids under review and consideration. /[id number] [address]IE[address]
[2018-05-02] MEDS ORDERED: Sulfamethoxazole/Trimethoprim 800-160 MG Tab PO SCH (09:00)
== END 2018-05-01 11:23 | disposition home or self-care (01) | DRG 392 ==
LOC: FB.ED 14:31 → FB.MS 17:46
PROVIDERS: ADMIT Family Medicine; ATTEND Family Medicine
DX: K57.32 Diverticulitis of large intestine without perforation or abscess without bleeding (principal); E87.1 Hypo-osmolality and hyponatremia; L40.50 Arthropathic psoriasis, unspecified; F17.210 Nicotine dependence, cigarettes, uncomplicated; M48.54XD Collapsed vertebra, not elsewhere classified, thoracic region, subsequent encounter for fracture with routine healing; M48.56XD Collapsed vertebra, not elsewhere classified, lumbar region, subsequent encounter for fracture with routine healing; Z90.49 Acquired absence of other specified parts of digestive tract; Z79.899 Other long term (current) drug therapy; Z79.52 Long term (current) use of systemic steroids
CPT/HCPCS: 36415; 74177; 80048; 80053; 81001; 82150; 83605; 85025; 87040; 96361; 96372; 96374; 96375; 96376; 99285; A9270-GY; C9113; J1170; J1956; J2405; J2550; J3490; J7030; Q9967

== ENCOUNTER 2018-05-05 08:58 | Day surgery (SDC) | payer MEDICAID ==
[~2018-05-05 08:58] MED LIST changes: -HYDROmorphone 2 MG/ML SDV IV ONE; +Lactated Ringers 1,000 ML IV SCH; -Midazolam 1 MG/ML 2 ML SDV IV ONE; +Sodium Chloride 0.9% 10 ML Syringe FLUSH PRN; -fentaNYL 100 MCG/2 ML SDV IV ONE
[2018-05-05] MEDS ORDERED: Sodium Chloride 0.9% 10 ML Syringe FLUSH PRN (09:00)
[2018-05-05] MEDS ORDERED: Lactated Ringers 1,000 ML IV SCH (09:00)
--- NOTE | 2018-05-05 09:33 | PCM.HP ---
H&P History of Present Illness - General Date of Service: 05/05/18 Admit Problem/Dx: Admission Diagnosis/Problem Admission Diagnosis/Problem Back pain - History of Present Illness Initial Comments - Free Text/Narative: 52 yo wm with a hx of back pain. he was recently admitted with severe back pain and numbness. he has a previous hx of kyphoplasties and compression fractures due to alf steroid use. He is for a MRI and a dexascan today under sedation. - Related Data Allergies/Adverse Reactions: Allergies Allergy/AdvReac Type Severity Reaction Status Date / Time No Known Allergies Allergy Verified 05/04/18 11:45 Home Medications: Home Meds Calcium Carbonate 500 mg PO TID 04/15/18 [History] Cholecalciferol (Vitamin D3) [Vitamin D3] 1 tab PO DAILY 04/15/18 [History] Fluconazole [Diflucan] 200 mg PO DAILY 04/15/18 [History] Gabapentin [Neurontin] 100 mg PO TID 04/15/18 [History] Omeprazole 20 mg PO DAILY 04/15/18 [History] Acetaminophen [Tylenol] 650 mg PO Q4H tablet 04/16/18 [Rx] Bisacodyl [Dulcolax] 5 mg PO DAILY PRN tablet 04/16/18 [Rx] HYDROmorphone [Dilaudid] 2 mg PO Q4H PRN #1 tab 04/16/18 [Rx] Sulfamethoxazole/Trimethoprim [Septra DS] 1 tab PO MoWeFr@0900 tablet 04/16/18 [Rx] predniSONE [Prednisone] 40 mg PO DAILY 04/29/18 [History] metroNIDAZOLE [Flagyl] 500 mg PO Q8H #30 tablet 05/01/18 [Rx] predniSONE 5 mg PO DAILY tablet 05/01/18 [Rx] Lisinopril/Hydrochlorothiazide [Zestoretic 10-12.5 mg Tablet] 1 each PO DAILY [History] Sennosides/Docusate Sodium [Senokot-S Tablet] 1 each PO BID 05/04/18 [History] Past Medical History HEENT History: Reports: None Cardiovascular History: Reports: Hypertension, Other (See Below) Other Cardiovascular History: states that blood pressure is always high but PCP did not prescribe him with anti hypertensive med as PCP said that blood pressure is just related to his chonic pain. Respiratory History: Reports: Intubation, Previous, SOB Gastrointestinal History: Reports: None Genitourinary History: Reports: None ORTHO ASSISTANT History: Reports: None Musculoskeletal History: Reports: Arthritis, Back Pain, Chronic, Other (See Below) Other Musculoskeletal History: psoriatric arthritis Neurological History: Reports: Concussion Psychiatric History: Reports: Other (See Below) Other Psychiatric History: cocaine use in the past 1 year ago Endocrine/Metabolic History: Reports: None Hematologic History: Reports: None Immunologic History: Reports: None Oncologic (Cancer) History: Reports: None Dermatologic History: Reports: Psoriasis - Infectious Disease History Infectious Disease History: Reports: Chicken Pox - Past Surgical History Head Surgeries/Procedures: Reports: None HEENT Surgical History: Reports: Oral Surgery Cardiovascular Surgical History: Reports: None Respiratory Surgical History: Reports: None GI Surgical History: Reports: Cholecystectomy Endocrine Surgical History: Reports: None Neurological Surgical History: Reports: Vertebroplasty Other Neurological Surgeries/Procedures: Percutaneous Vertebroplasty 04/08/18 Musculoskeletal Surgical History: Reports: Other (See Below) Other Musculoskeletal Surgeries/Procedures:: CEMENT INJECTED INTO L2 AND L4 Dermatological Surgical History: Reports: None Social & Family History - Family History Family Medical History: Noncontributory - Caffeine Use Caffeine Use: Reports: Soda Other Caffeine Use: 4-5 bottles H&P Review of Systems - Review of Systems: Review Of Systems: See Below Pulmonary: Reports: Shortness of Breath (recent hx of pneumonia ) Cardiovascular: Reports: No Symptoms Gastrointestinal: Reports: No Symptoms Neurological: Reports: Numbness, Weakness Exam - Exam Exam: See Below - Vital Signs Vital Signs: Last Vital Signs Temp 97.8 F 05/05/18 09:18 Pulse 90 05/05/18 09:18 Resp 20 05/05/18 09:18 BP 123/83 05/05/18 09:18 Pulse Ox 97 05/05/18 09:18 Weight: 88.677 kg - Exam General: Alert, Oriented Lungs: Clear to Auscultation, Normal Respiratory Effort Cardiovascular: Regular Rate, Regular Rhythm GI/Abdominal Exam: Normal Bowel Sounds, Soft, Non-Tender - Problem List (1) Lumbar compression fracture SNOMED Code(s): 721848410 ICD Code: S32.000A - WEDGE COMPRESSION FRACTURE OF UNSP LUMBAR VERTEBRA, INIT Status: Acute Current Visit: No Qualifiers: Encounter type: sequela Fracture type: closed Problem List Initiated/Reviewed/Updated: Yes Orders Last 24hrs: Active Orders 24 hr Category Date Time Status Patient Status [ADT] Routine ADT 05/05/18 08:30 Ordered Patient to Empty Bladder [RC] ASDIRECTED Care 05/05/18 08:30 Active Verify Patient Consent Obtain [RC] ASDIRECTED Care 05/05/18 08:30 Active Nothing Per Oral Diet [DIET] Diet 05/05/18 Breakfast Ordered Dexa Bone Density Body [MY] Routine Exams 05/05/18 11:30 Ordered Thoracic Spine Comp wo Cont [MR] Routine Exams 05/05/18 08:30 Ordered Lactated Ringers [Ringers, Lactated] 1,000 ml Med 05/05/18 08:30 Active IV ASDIRECTED Sodium Chloride 0.9% [Saline Flush] Med 05/05/18 08:30 Active 10 ml FLUSH ASDIRECTED PRN Peripheral IV Insertion Adult [OM.PC] Routine Oth 05/05/18 08:30 Ordered Resuscitation Status Routine Resus Stat 05/04/18 11:52 Ordered Medication Orders Lactated Ringer's (Ringers, Lactated) 1,000 mls @ 125 mls/hr IV ASDIRECTED YUMIKO Sodium Chloride (Saline Flush) 10 ml FLUSH ASDIRECTED PRN PRN Reason: Keep Vein Open Assessment/Plan Comment:: no preclusion to having sedation done today.
[2018-05-05] MEDS ORDERED: Propofol 200 MG/20 ML SDV IV ONE (11:10)
[2018-05-05] MEDS ORDERED: Midazolam 1 MG/ML 2 ML SDV IV ONE (11:10)
[2018-05-05] MEDS ORDERED: Dexamethasone 4 MG/ML 5 ML MDV IVPUSH ONE (11:10)
--- NOTE | 2018-05-09 11:10 | CR ---
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 BONE DENSITOMETRY DEXA SCAN: The total mean density of the proximal femoral necks measures 0.822 gm/cm2. This represents a value 77% that of a young adult. The T-score of -1.9 is low. The fracture risk is moderate. The bone density of the distal left forearm, radius 33% was 0.967 gm/cm2. This represents a value 98% that of a young adult. The T-score of -0.2 is normal. The fracture risk is low. IMPRESSION: Osteopenia. Dual femur FRAX 10-year probability of fracture: Major osteoporotic 9.5%. Hip fracture 2.5%. Population [place] (). Based on dual-femur neck BMD. RECOMMENDATIONS: Osteopenia in a postmenopausal patient usually requires treatment because of the significant fracture risk. Increase intake of calcium to 1500 mg with Vitamin D (400-800 international units) a day. Start a weightbearing exercise: Walking, cycling, cross-country skiing, aerobic dancing, weightlifting, etc. Antiresorptive therapy with bisphosphates, Raloxifene is indicated. Because of age, patient most likely would not tolerate estrogen. (The effectiveness, potential side effects, and contraindications of each drug should be assessed before selection.) Follow up 2 years. RONELD
== END 2018-05-05 12:00 | disposition home or self-care (01) ==
LOC: FB.MRI 08:58
PROVIDERS: ATTEND Surgery
DX: M80.88XA Other osteoporosis with current pathological fracture, vertebra(e), initial encounter for fracture (principal); T38.0X5A Adverse effect of glucocorticoids and synthetic analogues, initial encounter; I10 Essential (primary) hypertension; L40.50 Arthropathic psoriasis, unspecified; Z79.52 Long term (current) use of systemic steroids; Z79.899 Other long term (current) drug therapy; Z98.890 Other specified postprocedural states
CPT/HCPCS: 72146; 77080; J1100; J2250; J2704; J7120

== ENCOUNTER 2018-05-09 10:54 | Emergency (ER) | payer MEDICAID ==
[2018-05-09] MEDS ORDERED: Sodium Chloride 0.9% 10 ML Syringe FLUSH PRN (11:07)
[2018-05-09] MEDS ORDERED: Sodium Chloride 0.9% 1,000 ML IV ONE (11:08)
[2018-05-09] MEDS ORDERED: Ondansetron 4 MG/2 ML SDV IVPUSH ONE (11:09)
[2018-05-09] MEDS ORDERED: HYDROmorphone 2 MG/ML SDV IVPUSH ONE (11:09)
--- NOTE | 2018-05-09 11:20 | EDM.PDOC ---
ED HPI GENERAL MEDICAL PROBLEM - General Chief Complaint: Gastrointestinal Problem Stated Complaint: STOMACH PAIN Time Seen by Provider: 05/09/18 11:15 Source of Information: Reports: Patient History Limitations: Reports: No Limitations - History of Present Illness INITIAL COMMENTS - FREE TEXT/NARRATIVE: Hospitalized at [facility] on 04/29/18 with diverticulitis and pneumonia, discharged 05/01/18 on Bactrim and Flagyl. Presents with LLQ pain with nausea since yesterday, onset of vomiting today. Also complains of worsening cough. Onset Date: 05/08/18 Location: Reports: Abdomen Quality: Reports: Dull Severity: Moderate Associated Symptoms: Reports: Nausea/Vomiting back Pain Score (Numeric/FACES): 10 - Related Data Allergies Allergy/AdvReac Type Severity Reaction Status Date / Time No Known Allergies Allergy Verified 05/09/18 11:02 Home Meds: Home Meds Omeprazole 20 mg PO DAILY 04/15/18 [History] Acetaminophen [Tylenol] 650 mg PO Q4H tablet 04/16/18 [Rx] Bisacodyl [Dulcolax] 5 mg PO DAILY PRN tablet 04/16/18 [Rx] HYDROmorphone [Dilaudid] 2 mg PO Q4H PRN #1 tab 04/16/18 [Rx] predniSONE [Prednisone] 30 mg PO DAILY 04/29/18 [History] Lisinopril/Hydrochlorothiazide [Zestoretic 10-12.5 mg Tablet] 1 each PO DAILY [History] Sennosides/Docusate Sodium [Senokot-S Tablet] 1 each PO BID 05/04/18 [History] predniSONE 30 mg PO DAILY 05/05/18 [History] Promethazine [Phenergan] 25 mg PO Q6H PRN #20 tab 05/09/18 [Rx] Sulfamethoxazole/Trimethoprim [Septra DS] 1 tab PO BID 05/09/18 [History] levoFLOXacin [Levaquin] 750 mg PO DAILY #9 tab 05/09/18 [Rx] metroNIDAZOLE [Flagyl] 500 mg PO TID 05/09/18 [History] oxyCODONE 10 mg PO Q4HR 05/09/18 [History] Past Medical History HEENT History: Reports: None Cardiovascular History: Reports: Hypertension, Other (See Below) Other Cardiovascular History: states that blood pressure is always high but PCP did not prescribe him with anti hypertensive med as PCP said that blood pressure is just related to his chonic pain. Respiratory History: Reports: Intubation, Previous, SOB Gastrointestinal History: Reports: None Other Gastrointestinal History: HOSPITALIZED WITH DIVERTICULITIS. 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 Musculoskeletal History: Reports: Arthritis, Back Pain, Chronic, Other (See Below) Other Musculoskeletal History: psoriatric arthritis Neurological History: Reports: Concussion Psychiatric History: Reports: Other (See Below) Other Psychiatric History: cocaine use in the past 1 year ago Endocrine/Metabolic History: Reports: None Hematologic History: Reports: None Immunologic History: Reports: None Oncologic (Cancer) History: Reports: None Dermatologic History: Reports: Psoriasis - Infectious Disease History Infectious Disease History: Reports: Chicken Pox - Past Surgical History Head Surgeries/Procedures: Reports: None HEENT Surgical History: Reports: Oral Surgery Cardiovascular Surgical History: Reports: None Respiratory Surgical History: Reports: None GI Surgical History: Reports: Cholecystectomy. Denies: Appendectomy Endocrine Surgical History: Reports: None Neurological Surgical History: Reports: Vertebroplasty Other Neurological Surgeries/Procedures: Percutaneous Vertebroplasty 04/08/18 Musculoskeletal Surgical History: Reports: Other (See Below) Other Musculoskeletal Surgeries/Procedures:: CEMENT INJECTED INTO L2 AND L4 Dermatological Surgical History: Reports: None Social & Family History - Family History Family Medical History: Noncontributory - Tobacco Use Smoking Status *Q: Current Every Day Smoker Tobacco Use Within Last Twelve Months: Cigarettes - Caffeine Use Caffeine Use: Reports: Soda Other Caffeine Use: 4-5 bottles - Alcohol Use Alcohol Use History: No - Recreational Drug Use Recreational Drug Use: No Drug Use in Last 12 Months: Yes Recreational Drug Type: Reports: Cocaine (recently quit) ED ROS GENERAL - Review of Systems Review Of Systems: ROS reveals no pertinent complaints other than HPI. ED EXAM, GI/ABD - Physical Exam Exam: See Below Exam Limited By: No Limitations General Appearance: Alert, WD/WN, No Apparent Distress Nose: Normal Inspection Throat/Mouth: No Airway Compromise Head: Atraumatic, Normocephalic Respiratory/Chest: No Respiratory Distress, Lungs Clear, Normal Breath Sounds Cardiovascular: Regular Rate, Rhythm, No Murmur GI/Abdominal Exam: Normal Bowel Sounds, Soft, Tender (left mid abdominal tenderness) (Male) Exam: Deferred Rectal (Males) Exam: Deferred Extremities: Normal Range of Motion Neurological: Alert, Oriented, Normal Cognition, No Motor/Sensory Deficits Psychiatric: Normal Affect, Normal Mood Skin Exam: Warm, Dry, Intact Course - Vital Signs Last Recorded V/S: Last Vital Signs Temp 36.9 C 05/09/18 14:25 Pulse 100 05/09/18 14:25 Resp 17 05/09/18 14:25 BP 122/72 05/09/18 14:25 Pulse Ox 97 05/09/18 14:25 - Orders/Labs/Meds Orders: Active Orders 24 hr Category Date Time Status Abdomen Pelvis w Cont [CT] Stat Exams 05/09/18 11:45 Taken CULTURE BLOOD [BC] Urgent Lab 05/09/18 15:39 Received CULTURE BLOOD [BC] Urgent Lab 05/09/18 15:44 Received Diatrizoate Diane/Diatrizoate Na [Gastrografin 37%] Med 05/09/18 13:15 Active 30 ml PO . DIRECTED Levofloxacin/Dextrose 5%-Water [Levaquin in D5W 750 MG/ Med 05/09/18 15:30 Active 150 ML] 750 mg Premix Bag 1 bag IV ONETIME Sodium Chloride 0.9% [Saline Flush] Med 05/09/18 11:07 Active 10 ml FLUSH ASDIRECTED PRN Blood Culture x2 Reflex Set [OM.PC] Urgent Oth 05/09/18 15:16 Ordered Saline Lock Insert [OM.PC] Routine Oth 05/09/18 11:07 Ordered Medication Orders Diatrizoate Meglum/Diatrizoate Sod (Gastrografin 37%) 30 ml PO . DIRECTED [facility] Last Admin: 05/09/18 13:55 Dose: 30 ml Levofloxacin/Dextrose 750 mg/ (Premix) 150 mls @ 100 mls/hr IV ONETIME ONE Stop: 05/09/18 16:59 Last Admin: 05/09/18 16:01 Dose: 100 mls/hr Sodium Chloride (Saline Flush) 10 ml FLUSH ASDIRECTED PRN PRN Reason: Keep Vein Open Labs: Laboratory Tests 05/09/18 05/09/18 05/09/18 Range/Units 11:12 11:12 11:12 WBC 18.5 H (4.5-12.0) X10-3/uL RBC 4.44 (4.30-5.75) x10(6)uL Hgb 13.8 (11.5-15.5) g/dL Hct 38.6 (30.0-51.3) % MCV 87.0 (80-96) fL MCH 31.2 (27.7-33.6) pg MCHC 35.9 H (32.2-35.4) g/dL RDW 15.9 H (11.5-15.5) % Plt Count 312 (125-369) X10(3)uL MPV 6.9 L (7.4-10.4) fL Add Manual Diff Yes Neutrophils % (Manual) 94 H (46-82) % Lymphocytes % (Manual) 3 L (13-37) % Monocytes % (Manual) 2 L (4-12) % Eosinophils % (Manual) 1 (0-5) % PT 9.5 (8.7-11.1) INR 0.98 (0.89-1.13) Sodium 128 L (135-145) mmol/L Potassium 4.9 (3.5-5.3) mmol/L Chloride 94 L D (100-110) mmol/L Carbon Dioxide 26 (21-32) mmol/L BUN 29 H (7-18) mg/dL Creatinine 1.3 (0.70-1.30) mg/dL Est Cr Clr Drug Dosing TNP Estimated GFR (MDRD) 58 L (>60) BUN/Creatinine Ratio 22.3 H (9-20) Glucose 129 H (80-116) mg/dL Lactic Acid (0.4-2.2) mmol/L Calcium 9.8 (8.6-10.2) mg/dL Total Bilirubin 0.3 (0.1-1.3) mg/dL AST 12 D (5-25) IU/L ALT 33 D (12-36) U/L Alkaline Phosphatase 146 H (56-112) IU/L Total Protein 6.9 (6.0-8.0) g/dL Albumin 3.6 (3.5-5.2) g/dL Globulin 3.3 g/dL Albumin/Globulin Ratio 1.1 Amylase 270 H (25-115) U/L Urine Color (YELLOW) Urine Appearance (CLEAR) Urine pH (5.0-6.5) Ur Specific [place] (1.010-1.025) Urine Protein (NEGATIVE) mg/dL Urine Glucose (UA) (NEGATIVE) mg/dL Urine Ketones (NEGATIVE) mg/dL Urine Occult Blood (NEGATIVE) Urine Nitrite (NEGATIVE) Urine Bilirubin (NEGATIVE) Urine Urobilinogen (NEGATIVE) mg/dL Ur Leukocyte Esterase (NEGATIVE) Urine RBC (0) Urine WBC (0) Ur Squamous Epith Cells (NS,R,O) Urine Bacteria (NS) Hyaline Casts (NS) Urine Mucus (NS) 05/09/18 05/09/18 Range/Units 14:07 15:39 WBC (4.5-12.0) X10-3/uL RBC (4.30-5.75) x10(6)uL Hgb (11.5-15.5) g/dL Hct (30.0-51.3) % MCV (80-96) fL MCH (27.7-33.6) pg MCHC (32.2-35.4) g/dL RDW (11.5-15.5) % Plt Count (125-369) X10(3)uL MPV (7.4-10.4) fL Add Manual Diff Neutrophils % (Manual) (46-82) % Lymphocytes % (Manual) (13-37) % Monocytes % (Manual) (4-12) % Eosinophils % (Manual) (0-5) % PT (8.7-11.1) INR (0.89-1.13) Sodium (135-145) mmol/L Potassium (3.5-5.3) mmol/L Chloride (100-110) mmol/L Carbon Dioxide (21-32) mmol/L BUN (7-18) mg/dL Creatinine (0.70-1.30) mg/dL Est Cr Clr Drug Dosing Estimated GFR (MDRD) (>60) BUN/Creatinine Ratio (9-20) Glucose (80-116) mg/dL Lactic Acid 1.4 (0.4-2.2) mmol/L Calcium (8.6-10.2) mg/dL Total Bilirubin (0.1-1.3) mg/dL AST (5-25) IU/L ALT (12-36) U/L Alkaline Phosphatase (56-112) IU/L Total Protein (6.0-8.0) g/dL Albumin (3.5-5.2) g/dL Globulin g/dL Albumin/Globulin Ratio Amylase (25-115) U/L Urine Color Yellow (YELLOW) Urine Appearance Clear (CLEAR) Urine pH 6.0 (5.0-6.5) Ur Specific [place] 1.020 (1.010-1.025) Urine Protein Negative (NEGATIVE) mg/dL Urine Glucose (UA) Normal (NEGATIVE) mg/dL Urine Ketones Negative (NEGATIVE) mg/dL Urine Occult Blood Negative (NEGATIVE) Urine Nitrite Negative (NEGATIVE) Urine Bilirubin Small H (NEGATIVE) Urine Urobilinogen Normal (NEGATIVE) mg/dL Ur Leukocyte Esterase Negative (NEGATIVE) Urine RBC Not seen (0) Urine WBC 0-5 (0) Ur Squamous Epith Cells Few H (NS,R,O) Urine Bacteria Few H (NS) Hyaline Casts Few H (NS) Urine Mucus Moderate H (NS) Meds: Medications Generic Name Dose Route Start Last Admin Trade Name Freq PRN Reason Stop Dose Admin Diatrizoate Meglum/Diatrizoate Sod 30 ml 05/09/18 13:15 05/09/18 13:55 Gastrografin 37% PO 30 ml . DIRECTED YUMIKO Administration Levofloxacin/Dextrose 750 mg/ 150 mls @ 100 mls/hr 05/09/18 15:30 05/09/18 16 :01 Premix IV 05/09/18 16:59 100 mls/hr ONETIME ONE Administration Sodium Chloride 10 ml 05/09/18 11:07 Saline Flush FLUSH ASDIRECTED PRN Keep Vein Open Discontinued Medications Generic Name Dose Route Start Last Admin Trade Name Freq PRN Reason Stop Dose Admin Hydromorphone HCl 1 mg 05/09/18 11:09 05/09/18 11:34 Dilaudid IVPUSH 05/09/18 11:10 1 mg ONETIME ONE Administration Sodium Chloride 1,000 mls @ 999 mls/hr 05/09/18 11:08 05/09/18 11:30 Normal Saline IV 05/09/18 12:08 999 mls/hr .BOLUS ONE Administration Iopamidol 100 ml 05/09/18 13:07 05/09/18 13:55 Isovue-370 (76%) IV 05/09/18 13:08 98 ml . DIRECTED ONE Administration Ondansetron HCl 4 mg 05/09/18 11:09 05/09/18 11:34 Zofran IVPUSH 05/09/18 11:10 4 mg ONETIME ONE Administration - Radiology Interpretation Free Text/Narrative:: CT Abdomen/Pelvis w/ contrast: No acute intraabdominal findings. Worsening left sided infiltrate, new right basilar infiltrate. - Re-Assessments/Exams Free Text/Narrative Re-Assessment/Exam: 05/09/18 16:20 Symptoms have improved. Departure - Departure Time of Disposition: 16:46 Disposition: Home, Self-Care 01 Condition: Good Clinical Impression: Abdominal pain Qualifiers: Abdominal location: left lower quadrant Qualified Code(s): R10.32 - Left lower quadrant pain Vomiting Qualifiers: Vomiting type: vomiting of fecal matter Nausea presence: with nausea Qualified Code(s): R11.13 - Vomiting of fecal matter Pneumonia Qualifiers: Pneumonia type: due to unspecified organism Laterality: bilateral Lung location : lower lobe of lung Qualified Code(s): J18.1 - Lobar pneumonia, unspecified organism - Discharge Information *PRESCRIPTION DRUG MONITORING PROGRAM REVIEWED*: No *COPY OF PRESCRIPTION DRUG MONITORING REPORT IN PATIENT SANDY: Not Applicable Prescriptions: levoFLOXacin [Levaquin] 750 mg PO DAILY #9 tab Promethazine [Phenergan] 25 mg PO Q6H PRN #20 tab PRN Reason: Nausea/Vomiting Instructions: Nausea and Vomiting, Adult, Community-Acquired Pneumonia, Adult Referrals: Maicol Pina MD [Primary Care Provider] - Forms: ED Department Discharge Additional Instructions: Increase Prilosec to 40mg daily. Fill prescriptions for Levaquin and Phenergan and take as directed. Continue all other medications. Follow up with your primary physician in 2-3 days. Return to the ER if symptoms worsen. - My Orders Last 24 Hours: My Active Orders 05/09/18 11:07 Sodium Chloride 0.9% [Saline Flush] 10 ml FLUSH ASDIRECTED PRN Saline Lock Insert [OM.PC] Routine 05/09/18 11:45 Abdomen Pelvis w Cont [CT] Stat 05/09/18 13:15 Diatrizoate Diane/Diatrizoate Na [Gastrografin 37%] 30 ml PO . DIRECTED 05/09/18 15:16 Blood Culture x2 Reflex Set [OM.PC] Urgent 05/09/18 15:30 Levofloxacin/Dextrose 5%-Water [Levaquin in D5W 750 MG/150 ML] 750 mg Premix Bag 1 bag IV ONETIME 05/09/18 15:39 CULTURE BLOOD [BC] Urgent 05/09/18 15:44 CULTURE BLOOD [BC] Urgent - Assessment/Plan Last 24 Hours: My Active Orders 05/09/18 11:07 Sodium Chloride 0.9% [Saline Flush] 10 ml FLUSH ASDIRECTED PRN Saline Lock Insert [OM.PC] Routine 05/09/18 11:45 Abdomen Pelvis w Cont [CT] Stat 05/09/18 13:15 Diatrizoate Diane/Diatrizoate Na [Gastrografin 37%] 30 ml PO . DIRECTED 05/09/18 15:16 Blood Culture x2 Reflex Set [OM.PC] Urgent 05/09/18 15:30 Levofloxacin/Dextrose 5%-Water [Levaquin in D5W 750 MG/150 ML] 750 mg Premix Bag 1 bag IV ONETIME 05/09/18 15:39 CULTURE BLOOD [BC] Urgent 05/09/18 15:44 CULTURE BLOOD [BC] Urgent
[2018-05-09] MEDS ORDERED: Iopamidol 755 Mg/ML 100 ML Bottle IV ONE (13:07)
[2018-05-09] MEDS ORDERED: Diatrizoate Meglumine/Diatrizoate Sodium 37% 30 ML Bottle PO SCH (13:15)
[2018-05-09] MEDS ORDERED: Levofloxacin/Dextrose 5%-Water 750 MG in Premix Bag 1 BAG IV ONE (15:30)
--- NOTE | 2018-05-10 08:55 | CT ---
INDICATION: Abdominal pain. CT ABDOMEN AND PELVIS WITH CONTRAST: Spiral 2.5 mm axial sections were obtained through the abdomen with minimal oral contrast, since the patient refused to drink more than 3/4 of one bottle. IV contrast was utilized (98 mL Isovue 370 at 2 mL/second), with sagittal and coronal reconstructions, 2017, and were compared with 04/29/2018. Total exam DLP = 845.97 mGy-cm. A new finding of infiltration is noted in the left lower lobe, compatible with pneumonia. Some minimal fibrotic changes or possibly very minimal pneumonia at the right lung base - lower lobe is also seen. Atelectatic and/or infiltrative changes were also seen in the lingula. These were present previously to some degree and may represent ongoing disease or possibly fibrosis with superimposed atelectasis and/or pneumonia in the lingula. The heart is slightly prominent in size. No pericardial effusion was seen. The gallbladder is absent, compatible with history of its removal. No specific liver abnormality was seen. The spleen, adrenals, pancreas, and kidneys appeared normal. Minimal proximal sigmoid diverticulosis is noted without definite evidence of diverticulitis at this time. No evidence of bowel obstruction was seen. Urinary bladder was unremarkable. The appendix appeared normal, visualized on axial images #98 through #108. No retroperitoneal masses were identified. Minimal retroperitoneal lymphadenopathy is nonspecific. Multiple compression fractures are noted at T10 through L5. Two vertebroplasties are noted at L2 and L4. Degenerative disk disease is suggested at L2 through L5 with vacuum disk phenomena but only minimally at the L4-5 disk. IMPRESSION: 1. Mild sigmoid diverticulosis, no definite diverticulitis at this time. 2. Pneumonia in the lingula and left lower lobe, as well as very minimally in the right lower lobe, appears more prominent than on the previous examination. 3. Compression fractures in the thoracolumbar spine with vertebroplasties. Report was called to Dr. Montano at 1430 hours on 05/09/2018. [facility]
== END 2018-05-09 17:50 | disposition home or self-care (01) ==
LOC: FB.ED 10:54
DX: J18.9 Pneumonia, unspecified organism (principal); R11.13 Vomiting of fecal matter; R10.32 Left lower quadrant pain; Z79.899 Other long term (current) drug therapy; I10 Essential (primary) hypertension; F17.210 Nicotine dependence, cigarettes, uncomplicated
CPT/HCPCS: 36415; 74177; 80053; 81001; 82150; 83605; 85025; 85610; 87040; 96361; 96365; 96366; 96375; 99284; J1170; J1956; J2405; J7030; Q9963; Q9967

== ENCOUNTER 2018-09-03 21:28 | Emergency (ER) | payer MEDICAID ==
[2018-09-03] MEDS ORDERED: Ondansetron 4 MG/2 ML SDV IVPUSH ONE (21:46)
[2018-09-03] MEDS ORDERED: Ketorolac 30 MG/ML SDV IVPUSH ONE (21:47)
[2018-09-03] MEDS ORDERED: Metoclopramide 10 MG/2 ML SDV IVPUSH ONE (21:47)
--- NOTE | 2018-09-03 21:52 | EDM.PDOC ---
ED HPI GENERAL MEDICAL PROBLEM - General Chief Complaint: Gastrointestinal Problem Stated Complaint: VOMITING Time Seen by Provider: 09/03/18 21:48 Source of Information: Reports: Patient, Old Records History Limitations: Reports: No Limitations - History of Present Illness INITIAL COMMENTS - FREE TEXT/NARRATIVE: Ruy is a 55 yo male who has chronic back pain, and he returns today to the ER complaining of pain, vomiting since this afternoon. He states that he has severe back pain and was recently switched from Dilaudid to Percocet. Since this afternoon,however,he is been unable to keep his pain pills down because of vomiting.The pain in the abdomen is located in the left upper quadrant and mild to moderate intensity fibula back pain is severe and chronic with no recent changes. Denies any chest pain shortness of breath fever or chills. Lower back Pain Score (Numeric/FACES): 10 - Related Data Allergies Allergy/AdvReac Type Severity Reaction Status Date / Time No Known Allergies Allergy Verified 09/03/18 21:34 Home Meds: Home Meds predniSONE [Prednisone] 7 mg PO DAILY 04/29/18 [History] Lisinopril/Hydrochlorothiazide [Zestoretic 10-12.5 mg Tablet] 1 each PO DAILY [History] Sennosides/Docusate Sodium [Senokot-S Tablet] 1 each PO BID 05/04/18 [History] Cholecalciferol (Vitamin D3) [Vitamin D3] 1,000 unit PO DAILY 06/13/18 [History] Escitalopram [Lexapro] 10 mg PO DAILY 06/13/18 [History] Acetaminophen [Tylenol] 650 mg PO Q4H PRN 07/01/18 [History] Esomeprazole [NexIUM] 40 mg PO DAILY 07/01/18 [History] Acetaminophen/oxyCODONE [Percocet 325-5 MG] 2 each PO Q4H PRN 09/03/18 [History] Past Medical History HEENT History: Reports: None Cardiovascular History: Reports: Hypertension, Other (See Below) Other Cardiovascular History: states that blood pressure is always high but PCP did not prescribe him with anti hypertensive med as PCP said that blood pressure is just related to his chonic pain. Respiratory History: Reports: Intubation, Previous, SOB Gastrointestinal History: Reports: None Other Gastrointestinal History: HOSPITALIZED WITH DIVERTICULITIS. 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 Musculoskeletal History: Reports: Arthritis, Back Pain, Chronic, Other (See Below) Other Musculoskeletal History: psoriatric arthritis Neurological History: Reports: Concussion Psychiatric History: Reports: Other (See Below) Other Psychiatric History: cocaine use in the past 1 year ago Endocrine/Metabolic History: Reports: None Hematologic History: Reports: None Immunologic History: Reports: None Oncologic (Cancer) History: Reports: None Dermatologic History: Reports: Psoriasis - Infectious Disease History Infectious Disease History: Reports: Chicken Pox - Past Surgical History Head Surgeries/Procedures: Reports: None HEENT Surgical History: Reports: Oral Surgery Cardiovascular Surgical History: Reports: None Respiratory Surgical History: Reports: None GI Surgical History: Reports: Cholecystectomy Endocrine Surgical History: Reports: None Neurological Surgical History: Reports: Vertebroplasty Other Neurological Surgeries/Procedures: Percutaneous Vertebroplasty 04/08/18 Musculoskeletal Surgical History: Reports: Other (See Below) Other Musculoskeletal Surgeries/Procedures:: CEMENT INJECTED INTO L2 AND L4 Dermatological Surgical History: Reports: None Social & Family History - Family History Family Medical History: Noncontributory - Caffeine Use Caffeine Use: Reports: Soda Other Caffeine Use: 4-5 bottles ED ROS GENERAL - Review of Systems Review Of Systems: ROS reveals no pertinent complaints other than HPI. ED EXAM, GI/ABD - Physical Exam Exam: See Below Exam Limited By: No Limitations General Appearance: Alert, WD/WN, No Apparent Distress Ears: Normal External Exam Nose: Normal Inspection Throat/Mouth: Normal Inspection Neck: Normal Inspection Respiratory/Chest: No Respiratory Distress GI/Abdominal Exam: Normal Bowel Sounds, No Organomegaly, Tender (LUQ). No: Guarding, Rigid, Rebound, Abnormal Bowel Sounds, Hernia, Hepatomegaly, Splenomegaly Course - Vital Signs Last Recorded V/S: Last Vital Signs Temp 97.8 F 09/03/18 21:28 Pulse 91 09/03/18 23:05 Resp 20 09/03/18 23:05 BP 161/99 H 09/03/18 23:05 Pulse Ox 99 09/03/18 23:05 - Orders/Labs/Meds Orders: Active Orders 24 hr Category Date Time Status DRUG SCREEN, URINE ALERE [URCHEM] Stat Lab 09/03/18 21:46 Ordered UA W/MICROSCOPIC [URIN] Stat Lab 09/03/18 21:46 Ordered Labs: Laboratory Tests 09/03/18 09/03/18 Range/Units 21:55 21:55 WBC 12.6 H (4.5-12.0) X10-3/uL RBC 5.04 (4.30-5.75) x10(6)uL Hgb 15.2 (11.5-15.5) g/dL Hct 44.9 (30.0-51.3) % MCV 89.0 (80-96) fL MCH 30.1 (27.7-33.6) pg MCHC 33.8 (32.2-35.4) g/dL RDW 14.0 (11.5-15.5) % Plt Count 320 (125-369) X10(3)uL MPV 7.3 L (7.4-10.4) fL Neut % (Auto) 85.5 H (46-82) % Lymph % (Auto) 11.3 L (13-37) % [place] % (Auto) 2.9 L (4-12) % Eos % (Auto) 0 L (1.0-5.0) % Baso % (Auto) 0 (0-2) % Neut # (Auto) 10.8 H (1.6-8.3) # Lymph # (Auto) 1.4 (0.6-5.0) # [place] # (Auto) 0.4 (0.0-1.3) # Eos # (Auto) 0.0 (0.0-0.8) # Baso # (Auto) 0.0 (0.0-0.2) # Sodium 141 (135-145) mmol/L Potassium 4.0 (3.5-5.3) mmol/L Chloride 102 (100-110) mmol/L Carbon Dioxide 28 (21-32) mmol/L BUN 21 H (7-18) mg/dL Creatinine 1.3 (0.70-1.30) mg/dL Est Cr Clr Drug Dosing 70.79 mL/min Estimated GFR (MDRD) 58 L (>60) BUN/Creatinine Ratio 16.2 (9-20) Glucose 137 H (80-116) mg/dL Calcium 9.7 (8.6-10.2) mg/dL Total Bilirubin 0.3 (0.1-1.3) mg/dL AST 11 D (5-25) IU/L ALT 33 D (12-36) U/L Alkaline Phosphatase 156 H (56-112) IU/L Total Protein 7.5 (6.0-8.0) g/dL Albumin 4.1 (3.5-5.2) g/dL Globulin 3.4 g/dL Albumin/Globulin Ratio 1.2 Amylase 85 (25-115) U/L Meds: Medications Discontinued Medications Generic Name Dose Route Start Last Admin Trade Name [place] PRN Reason Stop Dose Admin Clonidine HCl 0.1 mg 09/03/18 22:51 09/03/18 23:01 Catapres PO 09/03/18 22:52 0.1 mg ONETIME ONE Administration Diazepam 10 mg 09/03/18 22:50 09/03/18 23:01 Valium IVPUSH 09/03/18 22:51 Not Given ONETIME ONE Diazepam Confirm 09/03/18 22:54 Valium Administered 09/03/18 22:55 Dose 5 mg .ROUTE .STK-MED ONE Diazepam 10 mg 09/03/18 22:55 09/03/18 22:59 Valium IV 09/03/18 22:56 10 mg ONETIME ONE Administration Sodium Chloride 1,000 mls @ 999 mls/hr 09/03/18 22:00 09/03/18 22:10 Normal Saline IV 999 mls/hr ASDIRECTED YUMIKO Administration Ketorolac Tromethamine 30 mg 09/03/18 21:47 09/03/18 22:16 Toradol IVPUSH 09/03/18 21:48 30 mg ONETIME ONE Administration Metoclopramide HCl 10 mg 09/03/18 21:47 09/03/18 22:17 Reglan IVPUSH 09/03/18 21:48 10 mg ONETIME ONE Administration Ondansetron HCl 8 mg 09/03/18 21:46 09/03/18 22:11 Zofran IVPUSH 09/03/18 21:47 8 mg ONETIME ONE Administration Departure - Departure Time of Disposition: 00:34 Disposition: Home, Self-Care 01 Condition: Good Clinical Impression: Narcotic withdrawal - Discharge Information Instructions: Metoclopramide injection, Ketorolac injection, Ondansetron injection, Diazepam injection, Finding Treatment for Addiction, Clonidine tablets Referrals: Maicol Pina MD [Primary Care Provider] - Forms: ED Department Discharge Additional Instructions: Activity as tolerated. Increase fluids. Follow up with Dr. Pina Wednesday at clinic. [facility] Detox: [phone] in [place], [place] Detoxification Center in [place], [place] [phone] - Problem List & Annotations (1) Chronic back pain SNOMED Code(s): 213445028 Code(s): M54.9 - DORSALGIA, UNSPECIFIED; G89.29 - OTHER CHRONIC PAIN Status : Acute Qualifiers: Back pain location: low back pain (2) Vomiting SNOMED Code(s): 482956830 Code(s): R11.10 - VOMITING, UNSPECIFIED Status: Acute Qualifiers: Vomiting type: vomiting of fecal matter Nausea presence: with nausea Qualified Code(s): R11.13 - Vomiting of fecal matter (3) Anxiety SNOMED Code(s): 26989135 Code(s): F41.9 - ANXIETY DISORDER, UNSPECIFIED Status: Acute (4) Narcotic withdrawal SNOMED Code(s): 68746054 Code(s): F11.23 - OPIOID DEPENDENCE WITH WITHDRAWAL Status: Acute - Problem List Review Problem List Initiated/Reviewed/Updated: Yes - My Orders Last 24 Hours: My Active Orders 09/03/18 21:46 DRUG SCREEN, URINE ALERE [URCHEM] Stat UA W/MICROSCOPIC [URIN] Stat - Assessment/Plan Last 24 Hours: My Active Orders 09/03/18 21:46 DRUG SCREEN, URINE ALERE [URCHEM] Stat UA W/MICROSCOPIC [URIN] Stat Plan: 1 L NS,IV Toradol,Zofran d and Valium were given. Patient improved and was Discjhreged home. I also gave him 1 tab of Catapres.
[2018-09-03] MEDS ORDERED: Sodium Chloride 0.9% 1,000 ML IV SCH (22:00)
[2018-09-03] MEDS ORDERED: cloNIDine 0.1 MG Tab PO ONE (22:51)
[2018-09-03] MEDS ORDERED: diazePAM 5 MG/ML MDV ONE (22:54)
[2018-09-03] MEDS ORDERED: diazePAM 5 MG/ML MDV IV ONE (22:55)
== END 2018-09-03 23:21 | disposition home or self-care (01) ==
LOC: FB.ED 21:28
DX: F11.23 Opioid dependence with withdrawal (principal); I10 Essential (primary) hypertension; Z79.899 Other long term (current) drug therapy
CPT/HCPCS: 36415; 80053; 82150; 85025; 96361; 96374; 96375; 99284; A9270; J1885; J2405; J2765; J7030

== ENCOUNTER 2018-09-06 22:04 | Emergency (ER) | payer MEDICAID ==
[2018-09-06] MEDS ORDERED: Dextrose 5%-Lactated Ringers 1,000 ML IV ONE (22:22)
[2018-09-06] MEDS: Sodium Chloride 0.9% 10 ML Syringe FLUSH PRN (22:35)
[2018-09-06] MEDS ORDERED: Lactated Ringers 1,000 ML IV ONE (23:02)
[2018-09-06] MEDS ORDERED: Acetaminophen 1,000 MG in Premix Bag 1 BAG IV ONE ×2 (23:04→23:38)
[2018-09-07] MEDS ORDERED: Metoclopramide 10 MG/2 ML SDV IVPUSH ONE (01:41)
[2018-09-07] MEDS ORDERED: hydrOXYzine HCl 50 MG/ML SDV IM ONE (01:42)
[2018-09-07] MEDS: Sodium Chloride 0.9% 10 ML Syringe FLUSH PRN (01:56)
--- NOTE | 2018-09-07 04:05 | EDM.PDOC ---
ED HPI GENERAL MEDICAL PROBLEM - General Chief Complaint: Abdominal Pain Stated Complaint: WEAKNESS Time Seen by Provider: 09/06/18 22:24 Source of Information: Reports: Patient History Limitations: Reports: No Limitations - History of Present Illness INITIAL COMMENTS - FREE TEXT/NARRATIVE: This 53-year-old presents with his daughter sitting in a wheelchair complaining of generalized 10/10 abdominal pain progressively increasing last 3 days with nausea and vomiting and anorexia 3-4 days duration. He's had pain like this before approximately 6 months ago (April 15, 2018). And he feels he's been sick for the last 5 days with vomiting and can't sleep. He takes OxyContin 4 times a day but is not able to take any of his medicines lately (for the last 3 days) because of the nausea and vomiting. He is documented osteoporosis secondary to obtaining prednisone from [place] to treat his psoriasis and having spontaneous onset of lumbar vertebral fractures. Annotated on the lumbar spine MRI 05/05/2018 with mild compression deformities within thoracic spine T5 T7 T11-12 and subtle edema with superior endplate fracture T 11 acute injury and deformity compression deformities of the inferior endplate the superior endplates of L3, vertebral plasty L2 and treated for kyphoplasty L2 andL4. On the MRI 04/15/18: spinal canal is widely patent and documented new compression fracture T12 superior endplate April 15, 2018 L3 for mild retropulsion no neuroforaminal stenosis sure bulging disc L4-5, mild spinal canal narrowing, L2 compression fracture with moderate vertebral height loss L2 and severe height loss L4 similar to prior MRI. Superior. He has significant problem list which was annotated colon diverticulitis, pneumonia, abdominal pain, dehydration, corticosteroid dependence, psoriasis, intractable nausea and vomiting, anxiety, always reflect some assistance of having taking high doses of prednisone with complications of immune compromise because of his prednisone. Currently being treated for hypertension with lisinopril/thiazide comminution, 7 mg of prednisone /still causing osteopenia, is not on a biologic, OxyCodone qid, he has not been able to keep down oxycodone for 3-1/2-4 days because of his nausea and vomiting. "I just want some sleep". "I just want to stop vomiting." Theses 2 statements sere made later in the hospital ER visit -after it was clear that I was not going to provide him with narcotics on this ER visit. Low back Pain Score (Numeric/FACES): 7 - Related Data Allergies Allergy/AdvReac Type Severity Reaction Status Date / Time No Known Allergies Allergy Verified 09/06/18 22:08 Home Meds: Home Meds predniSONE [Prednisone] 7 mg PO DAILY 04/29/18 [History] Lisinopril/Hydrochlorothiazide [Zestoretic 10-12.5 mg Tablet] 1 each PO DAILY [History] Sennosides/Docusate Sodium [Senokot-S Tablet] 1 each PO BID 05/04/18 [History] Cholecalciferol (Vitamin D3) [Vitamin D3] 1,000 unit PO DAILY 06/13/18 [History] Acetaminophen [Tylenol] 650 mg PO Q4H PRN 07/01/18 [History] Esomeprazole [NexIUM] 40 mg PO DAILY 07/01/18 [History] oxyCODONE ER [OxyCONTIN] 10 mg PO Q4H PRN 09/06/18 [History] Metoclopramide HCl [Reglan] 10 mg PO Q4HR PRN #16 tablet 09/07/18 [Rx] Past Medical History HEENT History: Reports: None Cardiovascular History: Reports: Hypertension Other Cardiovascular History: states that blood pressure is always high but PCP did not prescribe him with anti hypertensive med as PCP said that blood pressure is just related to his chonic pain. Respiratory History: Reports: Intubation, Previous, SOB Gastrointestinal History: Reports: None Other Gastrointestinal History: HOSPITALIZED WITH DIVERTICULITIS. 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 Musculoskeletal History: Reports: Arthritis, Back Pain, Chronic, Other (See Below) Other Musculoskeletal History: psoriatric arthritis Neurological History: Reports: Concussion Psychiatric History: Reports: Other (See Below) Other Psychiatric History: cocaine use in the past Endocrine/Metabolic History: Reports: None Hematologic History: Reports: None Immunologic History: Reports: None Oncologic (Cancer) History: Reports: None Dermatologic History: Reports: Psoriasis - Infectious Disease History Infectious Disease History: Reports: Chicken Pox - Past Surgical History Head Surgeries/Procedures: Reports: None HEENT Surgical History: Reports: Oral Surgery Cardiovascular Surgical History: Reports: None Respiratory Surgical History: Reports: None GI Surgical History: Reports: Cholecystectomy Endocrine Surgical History: Reports: None Neurological Surgical History: Reports: Vertebroplasty Other Neurological Surgeries/Procedures: Percutaneous Vertebroplasty 04/08/18 Musculoskeletal Surgical History: Reports: Other (See Below) Other Musculoskeletal Surgeries/Procedures:: CEMENT INJECTED INTO L2 AND L4 Dermatological Surgical History: Reports: None Social & Family History - Family History Family Medical History: Noncontributory - Tobacco Use Smoking Status *Q: Former Smoker Packs/Tins Daily: 1 Used Tobacco, but Quit: No - Caffeine Use Caffeine Use: Reports: None Other Caffeine Use: 4-5 bottles - Recreational Drug Use Recreational Drug Use: No ED ROS GENERAL - Review of Systems Review Of Systems: See Below Constitutional: Reports: Other (Weakness and nausea as noted in the history of present illness) HEENT: Reports: No Symptoms Respiratory: Reports: No Symptoms Cardiovascular: Reports: No Symptoms Endocrine: Reports: No Symptoms GI/Abdominal: Reports: Abdominal Pain, Nausea, Vomiting, Other (No diarrhea) : Reports: No Symptoms Musculoskeletal: Reports: Back Pain Skin: Reports: Other (Severe psoriasis of his lower extremities) Neurological: Reports: No Symptoms Psychiatric: Reports: No Symptoms, Other (Past medical history of chemical dependency recovery abuse) Hematologic/Lymphatic: Reports: No Symptoms Immunologic: Reports: No Symptoms ED EXAM, GI/ABD - Physical Exam Exam: See Below Text/Narrative:: A healthy looking man who looks younger than his age with a abdominal pain he states is 10/10 and his chronic lower vertebral pain difficulty with sleeping and nausea and vomiting( Exam Limited By: No Limitations General Appearance: Alert, Moderate Distress Eyes: Bilateral: Normal Appearance ( 3 mm) Ears: Normal External Exam, Normal Canal, Normal TMs Nose: Normal Inspection Throat/Mouth: Normal Inspection, Normal Lips, Normal Teeth, Normal Gums, Normal Oropharynx, Normal Voice, Other (Dry oral pharyngeal mucosa) Head: Atraumatic, Normocephalic Neck: Normal Inspection, Supple, Non-Tender, Full Range of Motion Respiratory/Chest: No Respiratory Distress, Lungs Clear, Normal Breath Sounds, No Accessory Muscle Use, Chest Non-Tender Cardiovascular: Normal Peripheral Pulses, Regular Rate, Rhythm, No Edema, No Gallop, No JVD, No Murmur, No Rub GI/Abdominal Exam: Normal Bowel Sounds, Soft, No Distention, No Mass, Tender, Other (When he relaxes his abdomen softens and is normal soft abdomen) (Male) Exam: No Hernia Rectal (Males) Exam: Deferred Back Exam: Normal Inspection, Vertebral Tenderness, Other (Left greater than right paraspinal muscle spasm lumbar region) Neurological: Alert, Oriented, CN II-XII Intact, Normal Cognition, Normal Gait, Normal Reflexes, No Motor/Sensory Deficits Psychiatric: Normal Affect, Normal Mood, Other (Cooperative but expecting pain medicine) Skin Exam: Warm, Dry, Intact, Other (Dry indurated erythematous plaques left and right lower extremities below the knees(treated psoriasis with abnormal skin integrity) Lymphatic: No Adenopathy ED ABDOMINAL/GI PROCEDURES - Additional/Other Procedure(s) Procedure(s) (Free Text): Initially had pain 10/10. Acetaminophen 1000 mg IV, 10 mg Reglan, his pain diminished to 4-5/10 before discharge. He was hydrated with thousand ml D5W lactated Ringer Ringers thousand mL normal saline he was markedly improved after receiving IVs and pain meds. Narcotics were used no ibuprofen/NSAIDs/ Toradol used. Course - Vital Signs Last Recorded V/S: Last Vital Signs Temp 36.7 C 09/07/18 02:05 Pulse 75 09/07/18 02:05 Resp 18 09/07/18 02:05 BP 168/89 H 09/07/18 02:05 Pulse Ox 99 09/07/18 02:05 - Orders/Labs/Meds Orders: Active Orders 24 hr Category Date Time Status Abdomen 2V AP Flat Upright [CR] Stat Exams 09/07/18 00:12 Taken Abdomen Pelvis w wo Cont [CT] Stat Exams 09/06/18 22:38 Ordered LIPASE, SERUM Urgent Lab 09/06/18 23:00 Received Peripheral IV Insertion Adult [OM.PC] Routine Oth 09/06/18 22:22 Ordered Labs: Laboratory Tests 09/06/18 09/06/18 09/06/18 Range/Units 23:00 23:00 23:00 WBC 8.8 (4.5-12.0) X10-3/uL RBC 4.73 (4.30-5.75) x10(6)uL Hgb 14.3 (11.5-15.5) g/dL Hct 41.7 (30.0-51.3) % MCV 88.0 (80-96) fL MCH 30.1 (27.7-33.6) pg MCHC 34.2 (32.2-35.4) g/dL RDW 13.7 (11.5-15.5) % Plt Count 239 (125-369) X10(3)uL MPV 7.2 L (7.4-10.4) fL Add Manual Diff Yes Neutrophils % (Manual) 82 (46-82) % Band Neutrophils % 2 (0-6) % Lymphocytes % (Manual) 11 L (13-37) % Monocytes % (Manual) 4 (4-12) % Eosinophils % (Manual) 1 (0-5) % Sodium 135 (135-145) mmol/L Potassium 3.5 (3.5-5.3) mmol/L Chloride 100 (100-110) mmol/L Carbon Dioxide 26 (21-32) mmol/L BUN 26 H (7-18) mg/dL Creatinine 1.1 (0.70-1.30) mg/dL Est Cr Clr Drug Dosing 81.11 mL/min Estimated GFR (MDRD) > 60 (>60) BUN/Creatinine Ratio 23.6 H (9-20) Glucose 164 H (80-116) mg/dL Lactic Acid 1.4 (0.4-2.2) mmol/L Calcium 9.1 (8.6-10.2) mg/dL Total Bilirubin 0.8 (0.1-1.3) mg/dL AST 17 D (5-25) IU/L ALT 45 H D (12-36) U/L Alkaline Phosphatase 148 H (56-112) IU/L Total Protein 6.5 (6.0-8.0) g/dL Albumin 3.7 (3.5-5.2) g/dL Globulin 2.8 g/dL Albumin/Globulin Ratio 1.3 Urine Opiates Screen (NEGATIVE) Ur Oxycodone Screen (NEGATIVE) Ur Propoxyphene Screen (NEGATIVE) Ur Barbituates Screen (NEGATIVE) Ur Tricyclics Screen (NEGATIVE) Ur Phencyclidine Scrn (NEGATIVE) Ur Amphetamine Screen (NEGATIVE) Urine MDMA Screen (NEGATIVE) U Benzodiazepines Scrn (NEGATIVE) U Cocaine Metab Screen (NEGATIVE) U Marijuana (THC) Screen (NEGATIVE) 09/07/18 Range/Units 00:12 WBC (4.5-12.0) X10-3/uL RBC (4.30-5.75) x10(6)uL Hgb (11.5-15.5) g/dL Hct (30.0-51.3) % MCV (80-96) fL MCH (27.7-33.6) pg MCHC (32.2-35.4) g/dL RDW (11.5-15.5) % Plt Count (125-369) X10(3)uL MPV (7.4-10.4) fL Add Manual Diff Neutrophils % (Manual) (46-82) % Band Neutrophils % (0-6) % Lymphocytes % (Manual) (13-37) % Monocytes % (Manual) (4-12) % Eosinophils % (Manual) (0-5) % Sodium (135-145) mmol/L Potassium (3.5-5.3) mmol/L Chloride (100-110) mmol/L Carbon Dioxide (21-32) mmol/L BUN (7-18) mg/dL Creatinine (0.70-1.30) mg/dL Est Cr Clr Drug Dosing mL/min Estimated GFR (MDRD) (>60) BUN/Creatinine Ratio (9-20) Glucose (80-116) mg/dL Lactic Acid (0.4-2.2) mmol/L Calcium (8.6-10.2) mg/dL Total Bilirubin (0.1-1.3) mg/dL AST (5-25) IU/L ALT (12-36) U/L Alkaline Phosphatase (56-112) IU/L Total Protein (6.0-8.0) g/dL Albumin (3.5-5.2) g/dL Globulin g/dL Albumin/Globulin Ratio Urine Opiates Screen Negative (NEGATIVE) Ur Oxycodone Screen Negative (NEGATIVE) Ur Propoxyphene Screen Negative (NEGATIVE) Ur Barbituates Screen Negative (NEGATIVE) Ur Tricyclics Screen Negative (NEGATIVE) Ur Phencyclidine Scrn Negative (NEGATIVE) Ur Amphetamine Screen Negative (NEGATIVE) Urine MDMA Screen Negative (NEGATIVE) U Benzodiazepines Scrn Positive H (NEGATIVE) U Cocaine Metab Screen Negative (NEGATIVE) U Marijuana (THC) Screen Negative (NEGATIVE) Meds: Medications Discontinued Medications Generic Name Dose Route Start Last Admin Trade Name Freq PRN Reason Stop Dose Admin Hydroxyzine HCl 50 mg 09/07/18 01:42 09/07/18 01:51 Vistaril IM 09/07/18 01:43 50 mg ONETIME ONE Administration Dextrose/Lactated Ringer's 1,000 mls @ 999 mls/hr 09/06/18 22:22 09/06/18 22: 38 Dextrose 5%-Lactated Ringers IV 09/06/18 23:22 999 mls/hr ONETIME ONE Administration Lactated Ringer's 1,000 mls @ 999 mls/hr 09/06/18 23:02 09/06/18 23:36 Ringers, Lactated IV 09/07/18 00:02 999 mls/hr BOLUS ONE Administration Acetaminophen 1,000 mg/ Premix 100 mls @ 400 mls/hr 09/06/18 23:04 09/06/18 23:39 IV 09/06/18 23:18 400 mls/hr NOW ONE Administration Acetaminophen 1,000 mg/ Premix 100 mls @ 400 mls/hr 09/06/18 23:38 09/06/18 23:39 IV 09/06/18 23:52 Not Given NOW ONE Metoclopramide HCl 10 mg 09/07/18 01:41 09/07/18 01:50 Reglan IVPUSH 09/07/18 01:42 10 mg ONETIME ONE Administration Sodium Chloride 10 ml 09/06/18 22:22 09/07/18 01:56 Saline Flush FLUSH 10 ml ASDIRECTED PRN Administration Keep Vein Open Departure - Departure Time of Disposition: 00:50 (Patient was remarkably better without using any narcotics. I think he was surprised that his pain and decreased without narcotics. He did not posterior fossa but initially he requested narcotics. I told him upfront that I wasn't planning to use narcotics.) Disposition: Home, Self-Care 01 Condition: Fair Clinical Impression: Psoriasis, H/O kyphoplasty, Steroid dependence Abdominal pain Qualifiers: Abdominal location: left lower quadrant Qualified Code(s): R10.32 - Left lower quadrant pain Osteopenia Qualifiers: Osteopenia location: lumbar spine Qualified Code(s): M85.88 - Other specified disorders of bone density and structure, other site - Discharge Information *PRESCRIPTION DRUG MONITORING PROGRAM REVIEWED*: Not Applicable *COPY OF PRESCRIPTION DRUG MONITORING REPORT IN PATIENT SANDY: Not Applicable Prescriptions: Metoclopramide HCl [Reglan] 10 mg PO Q4HR PRN #16 tablet PRN Reason: Nausea/Vomiting Instructions: Metoclopramide injection, Metoclopramide tablets, Abdominal Pain , Adult Referrals: Maicol Pina MD [Primary Care Provider] - Forms: ED Department Discharge Additional Instructions: Medicine that has been dispensed will help with your nausea: reglan and then you can restart your pain medicines that you have at home. Ideally, further consultation with dermatology might be helpful so you can start biologic's for your severe psoriasis. Biologics would allow you to get off of prednisone as soon as possible to prevent more spontaneous vertebral fractures from osteoporosis and osteopenia induced by prednisone treatment of your psoriasis. Gradually increase your diet as tolerated. Follow-up with her doctor within the next 5-7 days, earlier if worse - My Orders Last 24 Hours: My Active Orders 09/06/18 22:22 Peripheral IV Insertion Adult [OM.PC] Routine 09/06/18 22:38 Abdomen Pelvis w wo Cont [CT] Stat 09/06/18 23:00 LIPASE, SERUM Urgent 09/07/18 00:12 Abdomen 2V AP Flat Upright [CR] Stat - Assessment/Plan Last 24 Hours: My Active Orders 09/06/18 22:22 Peripheral IV Insertion Adult [OM.PC] Routine 09/06/18 22:38 Abdomen Pelvis w wo Cont [CT] Stat 09/06/18 23:00 LIPASE, SERUM Urgent 09/07/18 00:12 Abdomen 2V AP Flat Upright [CR] Stat
--- NOTE | 2018-09-07 10:42 | CR ---
INDICATION: Abdominal pain. ABDOMEN UPRIGHT TWO VIEWS: Four images of the abdomen in supine and upright projections were obtained 09/07/[address] of 06/13/18. Vertebroplasties x2 and evidence of cholecystectomy again noted. There is some minimal air fluid levels in the right flank-right lower quadrant with minimal air fluid level also on the left. No significant distention of the bowel was identified to strongly suggest a mechanically obstructive process at this time, although an early or partial mechanical obstruction is difficult to entirely exclude. However, more likely findings are on the basis of a process such as gastroenteritis or possibly a paralytic ileus of mild degree possibly on the basis of inflammatory disease. This should be correlated clinically with follow up x-rays or additional examinations as warranted, depending on clinical course. Degenerative changes are noted at the right sacroiliac joint of mild to moderate and minimal degree at the left sacroiliac joint. No definite organomegaly or mass lesions could be identified. No pathologic calcifications were seen. IMPRESSION: Air fluid levels but with very little distention of the bowel. Findings may be on the basis of gastroenteritis or possibly a paralytic ileus. Follow up is recommended as an early or partial distal small bowel obstruction cannot be entirely excluded. MTDD
== END 2018-09-07 02:17 | disposition home or self-care (01) ==
LOC: FB.ED 22:04
DX: R10.32 Left lower quadrant pain (principal); I10 Essential (primary) hypertension; F11.20 Opioid dependence, uncomplicated; M85.88 Other specified disorders of bone density and structure, other site; L40.9 Psoriasis, unspecified; Z98.890 Other specified postprocedural states; Z87.891 Personal history of nicotine dependence; Z79.899 Other long term (current) drug therapy
CPT/HCPCS: 36415; 74019; 80053; 80305; 83605; 83690; 85025; 96361; 96372; 96374; 96375; 99284; J0131; J2765; J3410; J7042; J7120